=== PATIENT | female | born 1950 | race Caucasian/White ===

== ENCOUNTER → 2018-01-19 | Outpatient (CLI) | payer MEDICARE, OTHER ==
[~2018-01-19] MED LIST: ACETAMINOPHEN325 M1 PO; ARTHROTEC EC 71 EACH PO; ASPIR 8181 MG PO; CLARITIN-D 241 EACH PO; CYANOCOBAL1000 MCG/M IV; DEXILANT60 MG PO; DICLOFENAC SODI75 MG PO; EDARBI40 MG PO; JANUVIA100 MG PO; K DUR10 MEQ PO; LASIX20 MG PO; LASIX40 MG PO; LEVOTHYROXINE PO; LISINOPRIL10 MG PO; METHOCARBAMOL750 MG PO; METOPROLOL SUCC50 MG PO; METOPROLOL TART50 MG PO; MUPIROCIN22 GM TOP; NEXIUM40 MG PO; NITROFURANTOIN100 M1 PO; NORCO 10-325 T1 EACH PO; NYSTATIN100000 UNI PO; SYNTHROID125 MCG PO; VITAMIN C100 MG PO; VITAMIN D1000 UNI1 PO; Z.0.DETROL LA4 MG PO; Z.0.NEXIUM40 MG PO; [UNRECOGNIZED DRUG - OTHER] PO; [UNRECOGNIZED DRUG - OTHER] PO
== END ==
LOC: RAD 13:42
PROVIDERS: ATTEND Internal Medicine
DX: R22.41 Localized swelling, mass and lump, right lower limb (principal)
CPT/HCPCS: 93925; 93970

== ENCOUNTER → 2018-02-01 | Outpatient (CLI) | payer MEDICARE, OTHER | LOC: MAMMO 12:37 | PROVIDERS: ATTEND Internal Medicine | DX: Z12.31 Encounter for screening mammogram for malignant neoplasm of breast (principal) | CPT/HCPCS: 77067 ==

== ENCOUNTER → 2018-08-05 | Outpatient (CLI) | payer MEDICARE, OTHER ==
--- NOTE | 2018-08-05 11:25 | Diagnostic Imaging Report ---
EXAMINATION: CT scan of the chest without contrast. TECHNIQUE: Helical CT images of the chest were performed from the lung apices to the level of the adrenal glands. No intravenous contrast was administered Coronal and sagittal reformatted images were obtained. Dose modulation, iterative reconstruction, and/or weight based adjustment of the mA/kV was utilized to reduce the radiation dose to as low as reasonably achievable. COMPARISON: None. CLINICAL HISTORY:Shortness of breath, lung cancer screening DISCUSSION: ABSENCE OF INTRAVENOUS CONTRAST DECREASES SENSITIVITY FOR DETECTION OF FOCAL LESIONS AND VASCULAR PATHOLOGY. LINES/TUBES: None. LUNGS AND AIRWAYS: The lungs are clear. No pulmonary nodules, masses or consolidation. The airways are normal, without endobronchial lesions. PLEURA: No pneumothorax or pleural effusions. HEART AND MEDIASTINUM: The thyroid gland is normal. The heart and pericardium are within normal limits. LYMPH NODES: There is no mediastinal, hilar or axillary lymphadenopathy. ABDOMEN: Left renal calculi, nonobstructing. Cholecystectomy. BONES AND SOFT TISSUES: Thoracic kyphosis. Bone demineralization. Skeletal hyperostosis. IMPRESSION: No concerning nodule or mass. Signed by: Dr. Antony Clayton M.D. on 08/05/2018 11:22 AM
== END ==
LOC: CT 10:35
PROVIDERS: ATTEND Internal Medicine Critical Care Medicine
DX: Z12.2 Encounter for screening for malignant neoplasm of respiratory organs (principal)
CPT/HCPCS: 71250

== ENCOUNTER → 2018-08-09 | Outpatient (CLI) | payer MEDICARE, OTHER ==
--- NOTE | 2018-08-10 09:25 | Diagnostic Imaging Report ---
#[id number] - [id number] #UNILATERAL RIGHT DIGITAL DIAGNOSTIC MAMMOGRAM WITH CAD: 08/09/2018 Comparison is made to exams dated: 02/01/2018 mammogram, 09/14/2014 mammogram and 03/29/2013 mammogram - [facility]. Current study contains 3 films. There are scattered fibroglandular elements in the right breast. Current study was also evaluated with a Computer Aided Detection (CAD) system. There are benign calcifications and a nodule in the right breast. A marker is placed where the patient has focal pain. No significant masses, calcifications, or other findings are seen in the breast. There has been no significant interval change. IMPRESSION: BENIGN There is no mammographic evidence of malignancy. A 1 year screening mammogram is recommended. The patient will be notified by letter of the results. Paolo Brandon Jr., D.O. cw/:08/09/2018 13:35:15 Network Technical Analyst: Amelia ESPINOZA(Vee)(M), [facility] letter sent: Compared to Prior B9 Mammogram BI-RADS: 2 Benign
== END ==
LOC: MAMMO 09:58
PROVIDERS: ATTEND Internal Medicine
DX: N63.10 Unspecified lump in the right breast, unspecified quadrant (principal)

== ENCOUNTER 2018-10-01 00:48 | Emergency (ER) | payer MEDICARE, OTHER ==
[~2018-10-01] VITALS: Ht 165.1 cm; Wt 106.6 kg
--- OUTSIDE RECORDS SUMMARY | 2018-10-01 00:51 | XMS REPORT ---
Author Author [facility] Address Unknown Phone Unavailable Care Team Providers Care Flight Engineer Manager Name Role Phone JO BRAN Unavailable Unavailable OPHELIA CHA Unavailable Unavailable Problems This patient has no known problems. Allergies, Adverse Reactions, Alerts This patient has no known allergies or adverse reactions. Medications This patient has no known medications. Results Test Description Test Time Test Comments Text Results Atomic Results Result Comments MAMMOGRAPHY DIGITAL DX UNI RT 2018-08-09 11:28:00 [place] [address] Patient Name: NICOLÁS SMALLS MR #: [id number] : 1950 Age/Sex: 68/F Req #: [id number] [facility] Physician: Ordered by: JO BRAN MD Report #: [id number] Location: MAMMO Room/Bed: Procedure: [id number] MG/MAMMOGRAPHY DIGITAL DX UNI RT Exam Date: 08/09/18 Exam Time: 1033 REPORT STATUS: Signed #[id number] - [id number] #UNILATERAL RIGHT DIGITAL DIAGNOSTIC MAMMOGRAM WITH CAD: 08/09/2018 Comparison is made to exams dated: 02/01/2018 mammogram, 09/14/2014 mammogram and 03/29/2013 mammogram - [facility]. Current study contains 3 films. There are scattered fibroglandular elements in the right breast. Current study was also evaluated with a Computer Aided Detection (CAD) system. There are benign calcifications and a nodule in the right breast. A marker is placed where the patient has focal pain. No significant masses, calcifications, or other findings are seen in the breast. There has been no significant interval change. IMPRESSION: BENIGN There is no mammographic evidence of malignancy. A 1 year screening mammogram is recommended. The patient will be notified by letter of the results. Kimberlyn Brandon Jr., D.O. cw/:08/09/2018 13:35:15 School Office Assistant: Amelia ESPINOZA(Vee)([place]), [facility] letter sent: Compared to Prior B9 Mammogram BI-RADS: 2 Benign Dictated By: KIMBERLYN BRANDON DO 1335 Transcribed By: ANALISA on 08/09/18 1335 COPY TO: JO BRAN MD CT CHEST WO 2018-08-05 11:18:00 [place] [address] Patient Name: NICOLÁS SMALLS MR #: [id number] : 1950 Age/Sex: 68/F Req #: [id number] [facility] Physician: Ordered by: OPHELIA CHA MD Report #: [id number] Location: CT Room/Bed: Procedure: [id number] CT/CT CHEST WO Exam Date: 08/05/18 Exam Time: 1055 REPORT STATUS: Signed EXAMINATION: CT scan of the chest without contrast. TECHNIQUE: Helical CT images of the chest were performed from the lung apices to the level of the adrenal glands. No intravenous contrast was administered Coronal and sagittal reformatted images were obtained. Dose modulation, iterative reconstruction, and/or weight based adjustment of the mA/kV was utilized to reduce the radiation dose to as low as reasonably achievable. COMPARISON: None. CLINICAL HISTORY:Shortness of breath, lung cancer screening DISCUSSION: ABSENCE OF INTRAVENOUS CONTRAST DECREASES SENSITIVITY FOR DETECTION OF FOCAL LESIONS AND VASCULAR PATHOLOGY. LINES/TUBES: None. LUNGS AND AIRWAYS: The lungs are clear. No pulmonary nodules, masses or consolidation. The airways are normal, without endobronchial lesions. PL EURA: No pneumothorax or pleural effusions. HEART AND MEDIASTINUM: The thyroid gland is normal. The heart and pericardium are within normal limits. LYMPH NODES: There is no mediastinal, hilar or axillary lymphadenopathy. ABDOMEN: Left renal calculi, nonobstructing. Cholecystectomy. BONES AND SOFT TISSUES: Thoracic kyphosis. Bone demineralization. Skeletal hyperostosis. IMPRESSION: No concerning nodule or mass. Signed by: Dr. Rodríguez Chairez M.D. on 08/05/2018 11:22 AM Dictated By: RODRÍGUEZ CHAIREZ MD 112 Transcribed By: KENAN on 08/05/18 112 COPY TO: OPHELIA CHA MD MAMMOGRAPHY DIGITAL SCR BILAT [place] [address] Patient Name: NICOLÁS SMALLS MR #: [id number] : 1950 Age/Sex: 68/F Req #: [id number] Adm Physician: Ordered by: JO BRAN MD Report #: [id number] Location: MAMMO Room/Bed: Procedure: [id number] MG/MAMMOGRAPHY DIGITAL SCR BILAT Exam Date: 02/01/18 Exam Time: 1300 REPORT STATUS: Signed #[id number] - [id number] #BILATERAL DIGITAL SCREENING MAMMOGRAM WITH CAD: 02/01/2018 CLINICAL: Routine screening. Comparison is made to exams dated: 09/14/2014 mammogram and 03/29/2013 mammogram - [facility]. Current study contains 6 films. There are scattered fibroglandular elements in both breasts. Current study was also evaluated with a Computer Aided Detection (CAD) system. There are benign calcifications and a nodule in both breasts. No significant masses, calcifications, or other findings are seen in either breast. Densely calcified lymph nodes in the right breast are new but are noted on a chest X-ray dated 06/08/2017. There has been no significant interval change. IMPRESSION: BENIGN There is no mammographic evidence of malignancy. A 1 year screening mammogram is recommended. The patient will be notified by letter of the results. Kimberlyn Brandon Jr., D.O. cw/:02/16/2018 12:12:13 School Office Assistant: Amelia ESPINOZA(Vee)(M), [facility] letter sent: Compared to Prior B9 Mammogram BI-RADS: 2 Benign Dictated By: KIMBERLYN BRANDON DO 1212 COPY TO: JO BRAN MD
[2018-10-01 01:48] LABS: INR 0.87; PROTHROMBIN TIME 12.7 seconds (11.9-14.5)
[2018-10-01 01:49] LABS: PARTIAL THROMBOPLASTIN TIME 34.7 seconds (23.8-35.5)
[2018-10-01 01:56] LABS: BASOPHILS % 0.4 % (0.0-1.0); EOSINOPHILS % 0.3 % (0.0-6.0); HEMATOCRIT 36.8 % (34.2-44.1); HEMOGLOBIN 11.9 g/dL (12.0-16.0); LYMPHOCYTES % 9.4 % (18.0-39.1); MEAN CORPUSCULAR HEMOGLOBIN 30.5 pg (28-32); MEAN CORPUSCULAR HGB CONC 32.3 g/dL (31-35); MEAN CORPUSCULAR VOLUME 94.4 fL (81-99); MONOCYTES # (AUTO) 0.5 (0.2-0.8); MONOCYTES % 4.6 % (4.4-11.3); NEUTROPHILS # (AUTO) 8.6 (2.1-6.9); NEUTROPHILS % 84.1 % (38.7-80.0); PLATELET COUNT 331 x10e3/uL (140-360); RED CELL DISTRIBUTION WIDTH 13.2 % (11.7-14.4)
[2018-10-01 01:57] LABS: ALANINE AMINOTRANSFERASE 18 IU/L (0-55); ALBUMIN 2.9 g/dL (3.5-5.0); ALBUMIN/GLOBULIN RATIO 0.7 (0.8-2.0); ALKALINE PHOSPHATASE 103 IU/L (40-150); ANION GAP 14.9 mmol/L (8-16); BLOOD UREA NITROGEN 9 mg/dL (7-26); BUN/CREATININE RATIO 14 (6-25); CALCIUM 9.6 mg/dL (8.4-10.2); CARBON DIOXIDE 25 mmol/L (22-29); CHLORIDE 104 mmol/L (98-107); CREATINE KINASE 97 IU/L (29-168); CREATININE, SERUM 0.64 mg/dL (0.57-1.11); EST GLOMERULAR FILTRATION RATE > 60 ML/MIN (60-); GLUCOSE 170 mg/dL (74-118); POTASSIUM 3.9 mmol/L (3.5-5.1); SODIUM 140 mmol/L (136-145)
--- NOTE | 2018-10-01 02:15 | Diagnostic Imaging Report ---
EXAMINATION: CHEST 2 VIEWS INDICATION: Shortness of breath COMPARISON: Chest x-ray 06/08/2017, chest CT 08/05/2018 FINDINGS: PA and lateral views TUBES and LINES: None. LUNGS: Lungs are well inflated. Lungs are clear. There is no evidence of pneumonia or pulmonary edema. PLEURA: No pleural effusion or pneumothorax. HEART AND MEDIASTINUM: Tortuous aorta. The cardiomediastinal silhouette is otherwise unremarkable. BONES AND SOFT TISSUES: No acute osseous lesion. Thoracic kyphosis. Stable 2 cm rounded calcification projecting over the right scapula, not seen on CT 08/05/2018, possibly within the anterior soft tissues extending out of the CT and x-ray. UPPER ABDOMEN: No free air under the diaphragm. IMPRESSION: No acute thoracic abnormality. Signed by: DR. Stevie Romo MD on 10/01/2018 2:12 AM
[2018-10-01] MEDS ORDERED: ALBUTEROL/IPRATROPIUM 3 ML NEB NEB ONE (02:30)
[2018-10-01 04:00] VITALS: BP 158/78
== END 2018-10-01 04:02 | disposition home or self-care (01) ==
LOC: ER 00:48
DX: J98.01 Acute bronchospasm (principal); J00 Acute nasopharyngitis [common cold]; Z79.82 Long term (current) use of aspirin; Z88.1 Allergy status to other antibiotic agents; Z91.010 Allergy to peanuts; Z88.0 Allergy status to penicillin; Z91.013 Allergy to seafood; Z91.018 Allergy to other foods
CPT/HCPCS: 36415; 71046; 80053; 82550; 82553; 84484; 85025; 85610; 85730; 87400; 93005; 99283

== ENCOUNTER → 2019-03-23 | Outpatient (CLI) | payer MEDICARE, OTHER | LOC: RAD 10:34 | PROVIDERS: ATTEND Nurse Practitioner Acute Care | DX: L03.115 Cellulitis of right lower limb (principal) | CPT/HCPCS: 93926; 93971 ==

== ENCOUNTER 2019-05-26 12:03 | Inpatient (IN) | payer MEDICARE, OTHER ==
[~2019-05-26] VITALS: Ht 165.1 cm; Wt 106.6 kg
[2019-05-26] MEDS ORDERED: SODIUM CHLORIDE FLUSH 10 ML SYR INJ PRN (12:30)
[2019-05-26] MEDS: CLINDAMYCIN 600MG / 50ML 50 ML IV SCH ×2 (12:50→22:05)
[2019-05-26 12:58] LABS: BASOPHILS % 0.2 % (0.0-1.0); EOSINOPHILS # (AUTO) 0.1 (0.0-0.4); EOSINOPHILS % 0.7 % (0.0-6.0); HEMATOCRIT 41.7 % (34.2-44.1); HEMOGLOBIN 13.1 g/dL (12.0-16.0); LYMPHOCYTES % 14.1 % (18.0-39.1); MEAN CORPUSCULAR HEMOGLOBIN 28.4 pg (28-32); MEAN CORPUSCULAR HGB CONC 31.4 g/dL (31-35); MEAN CORPUSCULAR VOLUME 90.3 fL (81-99); MONOCYTES # (AUTO) 0.5 (0.2-0.8); MONOCYTES % 3.8 % (4.4-11.3); NEUTROPHILS # (AUTO) 11.4 (2.1-6.9); NEUTROPHILS % 80.6 % (38.7-80.0); PLATELET COUNT 335 x10e3/uL (140-360); RED BLOOD COUNT 4.62 x10e6/uL (3.6-5.1); RED CELL DISTRIBUTION WIDTH 14.6 % (11.7-14.4)
[2019-05-26 13:44] LABS: ALANINE AMINOTRANSFERASE 13 IU/L (0-55); ALBUMIN 3.2 g/dL (3.5-5.0); ALBUMIN/GLOBULIN RATIO 0.8 (0.8-2.0); ALKALINE PHOSPHATASE 122 IU/L (40-150); ANION GAP 15.4 mmol/L (8-16); BLOOD UREA NITROGEN 11 mg/dL (7-26); BUN/CREATININE RATIO 16 (6-25); CALCIUM 9.6 mg/dL (8.4-10.2); CARBON DIOXIDE 27 mmol/L (22-29); CHLORIDE 101 mmol/L (98-107); CREATININE, SERUM 0.68 mg/dL (0.57-1.11); EST GLOMERULAR FILTRATION RATE > 60 ML/MIN (60-); GLUCOSE 125 mg/dL (74-118); POTASSIUM 4.4 mmol/L (3.5-5.1); SODIUM 139 mmol/L (136-145)
[2019-05-26] MEDS ORDERED: PANTOPRAZOLE SO40 MG PO (14:03)
[2019-05-26] MEDS ORDERED: LEVOTHYROXINE100 MCG PO (14:03)
[2019-05-26] MEDS ORDERED: RANITIDINE HCL150 MG PO (14:03)
[2019-05-26] MEDS ORDERED: METOPROLOL SUCC25 MG PO (14:03)
[2019-05-26] MEDS ORDERED: PROBIOTIC & AC1 EACH PO (14:03)
[2019-05-26 14:16] VITALS: BP 134/63
[2019-05-26 14:33] VITALS: BP 134/63
[2019-05-26 16:02] VITALS: BP 153/67
[2019-05-26 16:47] VITALS: BP 153/67
[2019-05-26] MEDS: KETOROLAC TROMETHAMINE 30 MG/ML VIAL IV PRN (18:55)
--- NOTE | 2019-05-26 19:36 | NUR ---
RECEIVED PT SITTING ON THE WHEEL CHAIR DENIES PAIN RESPIRATIONS ARE EVEN AND UNLABORED . FAMILY AT THE BEDSIDE .CALL LIGHT WITH IN REACH CONTINUE TO MONITOR
[2019-05-26 20:00] VITALS: BP 107/55
[2019-05-26 20:02] VITALS: BP 153/67
[2019-05-26] MEDS ORDERED: SODIUM CHLORIDE 0.9% 250ML 250 ML ONE (22:28)
[2019-05-26] MEDS: ACETAMINOPHEN 325 MG TAB PO PRN (23:09)
[2019-05-27] VITALS (7 sets, daily range): BP systolic 151–167; BP diastolic 65–77
[2019-05-27] MEDS: KETOROLAC TROMETHAMINE 30 MG/ML VIAL IV PRN ×2 (04:24→13:17)
[2019-05-27] MEDS ORDERED: CLONIDINE HCL 0.1 MG TAB PO PRN (04:30)
[2019-05-27] MEDS ORDERED: CHOLECALCIFEROL 1,000 UNIT TAB PO SCH (05:30)
[2019-05-27 05:51] LABS: BASOPHILS % 0.3 % (0.0-1.0); EOSINOPHILS # (AUTO) 0.2 (0.0-0.4); EOSINOPHILS % 1.3 % (0.0-6.0); HEMATOCRIT 36.5 % (34.2-44.1); HEMOGLOBIN 11.4 g/dL (12.0-16.0); LYMPHOCYTES # (AUTO) 1.8 (1.0-3.2); LYMPHOCYTES % 15.3 % (18.0-39.1); MEAN CORPUSCULAR HGB CONC 31.2 g/dL (31-35); MEAN CORPUSCULAR VOLUME 89.7 fL (81-99); MONOCYTES # (AUTO) 0.5 (0.2-0.8); MONOCYTES % 4.6 % (4.4-11.3); NEUTROPHILS # (AUTO) 9.1 (2.1-6.9); PLATELET COUNT 307 x10e3/uL (140-360); RED BLOOD COUNT 4.07 x10e6/uL (3.6-5.1); RED CELL DISTRIBUTION WIDTH 14.2 % (11.7-14.4)
[2019-05-27 06:12] LABS: ALANINE AMINOTRANSFERASE 10 IU/L (0-55); ALBUMIN 2.6 g/dL (3.5-5.0); ALBUMIN/GLOBULIN RATIO 0.7 (0.8-2.0); ALKALINE PHOSPHATASE 113 IU/L (40-150); BLOOD UREA NITROGEN 19 mg/dL (7-26); BUN/CREATININE RATIO 24 (6-25); CALCIUM 9.3 mg/dL (8.4-10.2); CARBON DIOXIDE 28 mmol/L (22-29); CHLORIDE 100 mmol/L (98-107); EST GLOMERULAR FILTRATION RATE > 60 ML/MIN (60-); GLUCOSE 146 mg/dL (74-118); SODIUM 137 mmol/L (136-145)
[2019-05-27] MEDS: CLINDAMYCIN 600MG / 50ML 50 ML IV SCH ×3 (06:36→22:00)
[2019-05-27] MEDS: LEVOTHYROXINE SODIUM 100 MCG TAB PO SCH (06:36)
--- NOTE | 2019-05-27 07:00 | NUR ---
RECEIVED AM REPORT FROM RN, MORNING ROUNDS DONE. PT IS ALERT, NO S/S OF DISTRESS. CALL LIGHT WITHIN REACH. NO COMPLAINTS AT THIS TIME.
--- NOTE | 2019-05-27 07:07 | NUR ---
BEDSIDE REPORT GIVEN TO THE ONCOMING NURSE
[2019-05-27] MEDS ORDERED: LISINOPRIL 10 MG TAB PO SCH (09:00)
[2019-05-27] MEDS ORDERED: METOPROLOL SUCCINATE 25 MG TAB XL PO SCH (09:00)
[2019-05-27] MEDS: PANTOPRAZOLE SOD 40 MG TABEC PO SCH (09:08)
--- NOTE | 2019-05-27 09:55 | Diagnostic Imaging Report ---
EXAM: Soft tissue facial ULTRASOUND INDICATION: ^do ultrasound of left cheek to rule out abscess COMPARISON: None TECHNIQUE: Transverse and sagittal images were performed of the left facial/cheek area using grayscale and color Doppler. FINDINGS: At the left facial cheek, there is a 3.3 cm x 1.1 cm complex fluid collection with peripheral vascularity. IMPRESSION: 3.3 x 1.1 cm complex fluid collection at the left facial cheek, likely an abscess. Signed by: Dr. William Brown M.D. on 05/27/2019 9:52 AM
--- NOTE | 2019-05-27 10:33 | NUR ---
pt complaining that "her cheek is leaking", RN noted swelling on left cheek, redness, and when warm compress or slight pressure was applied white/yellow discharge came out of pore on lower area of cheek.
[2019-05-27] MEDS ORDERED: LIDOCAINE HCL 1% LOCAL INJ 20 ML VIAL INJ ONE (16:45)
--- NOTE | 2019-05-27 16:45 | NUR ---
Dr. Jiang is at the bedside, performed aspiration on cyst, pt tolerated well. instructed pt to apply pressure to the aspiration site for 10 min to stop bleeding, pt verbalized understanding.
--- NOTE | 2019-05-27 17:03 | NUR ---
culture from aspiration was taken to lab
--- NOTE | 2019-05-27 19:38 | NUR ---
Received change of shift report from AM nurse. Walking rounds completed.
[2019-05-27] MEDS: ACETAMINOPHEN 325 MG TAB PO PRN (19:47)
[2019-05-27] MEDS: SITAGLIPTIN 100 MG TAB PO SCH (20:40)
[2019-05-27] MEDS: LISINOPRIL 20 MG TAB PO SCH (20:40)
[2019-05-27] MEDS: METOPROLOL SUCCINATE 25 MG TAB XL PO SCH (20:41)
--- NOTE | 2019-05-27 21:01 | NUR ---
Patient AAOx3. BP 167/71 med given as ordered for BP. BS 192 no SS noted. IV to right AC 20G HL dry, intact and patient. Patient c/o pain =5 given pain meds as ordered by MD. Continue monitor. Patient left eye red and draining small amount of serosangous fluid.
--- NOTE | 2019-05-27 23:44 | Consultation ---
DATE OF CONSULTATION: 05/27/2019 HISTORY OF PRESENT ILLNESS: I was kindly asked to see this pleasant 69-year-old woman for evaluation of facial abscess. The patient reports a cyst in the region of her left nasolabial fold, which has been approximately the size of a pea and been present for 2-3 years. She reports she developed a scab over the lesion and was scratching the scab and it suddenly became much worse with pain and swelling over the left cheek area. This then progressed to include the upper and lower eyelid and extended down to the level of the jaw. Since admission, she has been placed on IV antibiotics and was using warm compresses. She had spontaneous drainage of the abscess and has noted marked improvement in the pain, swelling and overlying erythema. On admission, ultrasound showed a 3.3 x 1.1 cm complex fluid collection of the left cheek region. REVIEW OF SYSTEMS: Her otolaryngology review of systems is pertinent for intermittent epistaxis and chronic allergic sinusitis. She also has excess cerumen which requires intermittent cleaning. PAST MEDICAL HISTORY: Reviewed in detail in the chart. PAST SURGICAL HISTORY: Reviewed in detail in the chart. PHYSICAL EXAMINATION: The right pinna was normal. The right external auditory canal was approximately 75% occluded with cerumen. The visualized portion of the tympanic membrane was normal. The left tympanic membrane was normal. Left external auditory canal had approximately 25% occlusion with cerumen. The visualized portion of the tympanic membrane was unremarkable. Intranasal examination showed an S shaped nasal septal deviation. There was dilation of the blood vessels bilaterally. She had edema of the nasal mucosa and minimal thick mucus was noted. Intraoral examination showed no clinically significant abnormalities. She had a minimal postnasal drainage. There was no palpable cervical adenopathy. The left nasolabial fold region had a 4 cm x 3 cm area of erythema and firmness. On bimanual palpation, there was no fluctuance noted. She had minimal edema of the left lower eyelid. After injection with 1% lidocaine, the lesion was aspirated with an 18-gauge needle, approximately 1.5 mL of pus was obtained. This was sent for culture. ASSESSMENT: Possible left facial epidermal inclusion cyst which has become infected, although a large abscess was identified on ultrasound. There was spontaneous drainage of the abscess and marked clinical improvement after initiation of IV antibiotic therapy. Therefore, it was elected to perform 18-gauge needle aspiration for therapeutic drainage as well as culture and sensitivity. PLAN: 1. Continuation of current IV antibiotics with continuation of warm compresses. 2. We will continue to observe for possible reaccumulation of abscess and possible incision and drainage. Thank you very much. MD ADRIANA Hadley/NATHALIA /[id number]
[2019-05-28] VITALS (7 sets, daily range): BP systolic 149–161; BP diastolic 67–81
[2019-05-28] MEDS: KETOROLAC TROMETHAMINE 30 MG/ML VIAL IV PRN (03:27)
--- NOTE | 2019-05-28 04:00 | NUR ---
Patient up to bathroom several times. Stand by asst. Hot and cold compress applied to left side of face. Redness and swelling continue.
[2019-05-28] MEDS: CLINDAMYCIN 600MG / 50ML 50 ML IV SCH ×3 (05:30→22:00)
[2019-05-28] MEDS: LEVOTHYROXINE SODIUM 100 MCG TAB PO SCH (05:31)
--- NOTE | 2019-05-28 07:00 | NUR ---
received am report from nurse, morning rounds done. pt is alert resting in bed. pt's left periorbital and cheek area are inflamed and red. pt plans on keeping warm compress on left side of face to help with selling. no complaints of pain at this time. call light within reach
[2019-05-28] MEDS: LISINOPRIL 20 MG TAB PO SCH ×2 (08:53→20:31)
[2019-05-28] MEDS: PANTOPRAZOLE SOD 40 MG TABEC PO SCH (08:53)
[2019-05-28] MEDS: METOPROLOL SUCCINATE 25 MG TAB XL PO SCH ×2 (08:54→20:31)
[2019-05-28] MEDS: AZTREONAM (AZACTAM) 1 GM in SODIUM CHLORIDE 0.9% 50ML 50 ML IV SCH ×2 (14:15→21:06)
--- NOTE | 2019-05-28 15:58 | NUR ---
pt complaining that she has not had a BM since wednesday. got new order from Dr. Reed for stool softener.
[2019-05-28] MEDS: DOCUSATE SODIUM 100 MG CAP PO SCH (16:10)
--- NOTE | 2019-05-28 17:32 | Consultation ---
DATE OF CONSULTATION: REASON FOR CONSULTATION: Face abscess. HISTORY OF PRESENT ILLNESS: Thank you so much to see this patient, who is a very pleasant 69-year-old female. The patient has been having swelling in her right side of her face for a week. 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 She had it on and off for a while. She thought it was just a small cyst, but over the last 3 days, it was getting progressively worse with fever and chills and redness and swelling of the face, so she came here. The patient, who has history of obesity, but she does have a lot of allergies. She is allergic to cephalosporin, penicillin, and sulfa. The patient was admitted. She has been seen by ENT, started on IV antibiotic. She is feeling better. PAST MEDICAL HISTORY: Obesity, hypertension, and hypothyroidism. PAST SURGICAL HISTORY: Denies. ALLERGIES: NKA. SOCIAL HISTORY: There is no smoking, drug abuse, or alcohol abuse. FAMILY HISTORY: Noncontributory. REVIEW OF SYSTEMS: HEENT: Negative. PULMONARY: Negative. CARDIAC: Negative. : Negative. Besides redness and swelling on her face, she denies any. PHYSICAL EXAMINATION: GENERAL: She is currently alert and oriented, does not seem to be in acute distress. VITAL SIGNS: Stable. Currently afebrile. HEENT: She is not icteric. NECK: Supple. No JVD. No lymphadenopathy. No thyromegaly. CHEST: Clear bilateral. HEART: S1 and S2. No S3, S4, or murmur. ABDOMEN: Soft. Bowel sounds present. No tenderness. EXTREMITIES: No edema. She did have redness and swelling on her left side of her face. The patient apparently underwent drainage just today and about 2 mL of pus. The culture showing gram-negative bacilli. MEDICATION LIST: She is currently on Synthroid and clindamycin. IMPRESSION: 1. Abscess on the face, gram-negative. The patient is allergic to penicillin. We will try Azactam. Await culture and sensitivity, local heat. The patient will be seen by ENT. Apparently, she is getting better so far, so we will continue the same. 2. Hypertension, hypothyroidism. Continue as ordered. 3. Obesity. 4. We will follow. MD LIZZY Love/NATHALIA /[id number]
--- NOTE | 2019-05-28 19:28 | NUR ---
Received change of shift report from AM nurse. Walking rounds completed. Patient in bed rsting quitly at this time. No noted distress or discomfort.
[2019-05-28] MEDS: SITAGLIPTIN 100 MG TAB PO SCH (20:31)
--- NOTE | 2019-05-28 21:30 | NUR ---
new iv #20 gauge placed to right hand x 1 stick. previous iv to right forearm d/c'd and clean dressing applied to site.
[2019-05-29] VITALS (7 sets, daily range): BP systolic 150–184; BP diastolic 72–99
[2019-05-29] MEDS: AZTREONAM (AZACTAM) 1 GM in SODIUM CHLORIDE 0.9% 50ML 50 ML IV SCH (05:30)
[2019-05-29] MEDS: LEVOTHYROXINE SODIUM 100 MCG TAB PO SCH (05:31)
[2019-05-29] MEDS: CLINDAMYCIN 600MG / 50ML 50 ML IV SCH (06:00)
--- NOTE | 2019-05-29 07:00 | NUR ---
RECEIVED PATIENT RESTING IN BED. NO ACUTE DISTRESS NOTED. DENIES PAIN OR DISCOMFORT AT THIS TIME. CALL LIGHT WITHIN REACH. BED IN THE LOWEST POSITION.
[2019-05-29] MEDS: DOCUSATE SODIUM 100 MG CAP PO SCH ×2 (09:00→16:03)
[2019-05-29] MEDS: LISINOPRIL 20 MG TAB PO SCH ×2 (09:23→22:10)
[2019-05-29] MEDS: PANTOPRAZOLE SOD 40 MG TABEC PO SCH (09:23)
[2019-05-29] MEDS: METOPROLOL SUCCINATE 25 MG TAB XL PO SCH ×2 (09:23→22:11)
[2019-05-29] MEDS: AZTREONAM 1 GM/NS 50 ML 50 ML IV SCH ×2 (13:40→22:53)
--- NOTE | 2019-05-29 17:58 | NUR ---
Nutrition Screen Note RD Recommendation for Physician: -Continue cardiac diet as ordered Plan of Care: RD following, monitoring for tolerance and adequacy Nutrition reason for involvement: Multiple food allergies Primary Diagnose(s): cellulitis and abscess of face PMH: Obesity, hypertension, and hypothyroidism Ht: 65in Wt: 235.25lb BMI: 39.1kg/m2 IBW: 125lb +/- 10% RD Assessment: (05/29) Chart reviewed. Labs and meds reviewed. 69yo F, who was admitted for cellulitis and abscess of L sided face. Visited pt in the room. Pt reported good appetite without any GI complains. Pt denied any chewing or swallowing difficulty. Weight has been stable. Reviewed food allergies with pt - confirmed allergies with peanut, garlic, onion and some fishes. Pt is not allergic to corn. Communicated food allergies with kitchen. Will continue to monitor and follow. Current Diet: cardiac diet Malnutrition Evaluation (05/29/2019) The patient does not meet criteria for a specified degree of malnutrition at this time. Will re-evaluate at follow-up as appropriate. Diet Education Needs Assessment: Diet education not indicated. Nutrition Care Level: low Signed: Sis Peterson, MS, RD, LD
--- NOTE | 2019-05-29 20:04 | NUR ---
REPORT GIVEN TO ONCOMING NURSE, WALKING ROUNDS DONE. PATIENT IS RESTING IN BED. CALL LIGHT WITHIN REACH. BED IN THE LOWEST POSITION.
--- NOTE | 2019-05-29 20:25 | NUR ---
PT IS RESTING IN BED. RESPIRATION IS EVEN AND UNLABORED, NO DISTRESS NOTED. BED IN THE LOWEST POSITION, LOCKED, AND CALL LIGHT WITHIN REACH. WILL CONTINUE TO MONITOR.
[2019-05-29] MEDS: SITAGLIPTIN 100 MG TAB PO SCH (22:10)
[2019-05-30] VITALS (10 sets, daily range): BP systolic 139–198; BP diastolic 72–97
[2019-05-30] MEDS: KETOROLAC TROMETHAMINE 30 MG/ML VIAL IV PRN (00:10)
[2019-05-30] MEDS: AZTREONAM 1 GM/NS 50 ML 50 ML IV SCH ×3 (05:49→22:35)
[2019-05-30] MEDS: LEVOTHYROXINE SODIUM 100 MCG TAB PO SCH (05:49)
--- NOTE | 2019-05-30 06:50 | NUR ---
RECEIVED PATIENT RESTING IN BED. NO ACUTE DISTRESS NOTED. NO S/S OF PAIN OR DISCOMFORT NOTED AT THIS TIME. CALL LIGHT WITHIN REACH. BED IN THE LOWEST POSITION.
[2019-05-30] MEDS: DOCUSATE SODIUM 100 MG CAP PO SCH ×2 (08:48→16:19)
[2019-05-30] MEDS: METOPROLOL SUCCINATE 25 MG TAB XL PO SCH ×2 (08:51→22:35)
[2019-05-30] MEDS: LISINOPRIL 20 MG TAB PO SCH ×2 (08:51→22:35)
[2019-05-30] MEDS: PANTOPRAZOLE SOD 40 MG TABEC PO SCH (08:51)
[2019-05-30] MEDS ORDERED: ERGOCALCIFEROL 50,000 UNIT CAP PO SCH (09:00)
[2019-05-30 12:19] LABS: ANION GAP 13.6 mmol/L (8-16); BLOOD UREA NITROGEN 20 mg/dL (7-26); BUN/CREATININE RATIO 29 (6-25); CALCIUM 9.5 mg/dL (8.4-10.2); CARBON DIOXIDE 28 mmol/L (22-29); CHLORIDE 100 mmol/L (98-107); CREATININE, SERUM 0.68 mg/dL (0.57-1.11); EST GLOMERULAR FILTRATION RATE > 60 ML/MIN (60-); GLUCOSE 136 mg/dL (74-118); POTASSIUM 4.6 mmol/L (3.5-5.1); SODIUM 137 mmol/L (136-145)
[2019-05-30] MEDS: TRIAMCINOLONE 0.1% DENTAL PASTE 0.18 OZ TUBE DT SCH ×2 (12:28→17:06)
[2019-05-30] MEDS: ACETAMINOPHEN 325 MG TAB PO PRN (15:32)
--- NOTE | 2019-05-30 15:41 | NUR ---
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
[2019-05-30] MEDS: LORATADINE 10 MG TAB PO SCH (16:23)
--- NOTE | 2019-05-30 19:17 | NUR ---
REPORT GIVEN TO ONCOMING NURSE, WALKING ROUNDS DONE. PATIENT IS RESTING IN BED. NO ACUTE DISTRESS NOTED. FAMILY MEMBERS AT BEDSIDE. CALL LIGHT WITHIN REACH. BED IN THE LOWEST POSITION.
--- NOTE | 2019-05-30 19:41 | NUR ---
PT IS RESTING IN BED WITH FAMILY AT BEDSIDE. RESPIRATION IS EVEN AND UNLABORED, NO DISTRESS NOTED. BED IN THE LOWEST POSITION, LOCKED, AND CALL LIGHT WITHIN REACH. WILL CONTINUE TO MONITOR.
[2019-05-30] MEDS: SITAGLIPTIN 100 MG TAB PO SCH (22:34)
[2019-05-31] VITALS (7 sets, daily range): BP systolic 146–178; BP diastolic 67–81
[2019-05-31] MEDS: ACETAMINOPHEN 325 MG TAB PO PRN ×2 (00:11→21:34)
[2019-05-31] MEDS: TRIAMCINOLONE 0.1% DENTAL PASTE 0.18 OZ TUBE DT SCH ×3 (05:40→19:08)
[2019-05-31] MEDS: AZTREONAM 1 GM/NS 50 ML 50 ML IV SCH ×3 (05:42→21:11)
[2019-05-31] MEDS: LEVOTHYROXINE SODIUM 100 MCG TAB PO SCH (05:42)
--- NOTE | 2019-05-31 07:30 | NUR ---
PT IN BED SLEEPING NO DISTRESS NOTED .NO S/S DISCOMFORT
[2019-05-31] MEDS: DOCUSATE SODIUM 100 MG CAP PO SCH ×3 (08:43→17:00)
[2019-05-31] MEDS: LORATADINE 10 MG TAB PO SCH (08:43)
[2019-05-31] MEDS: METOPROLOL SUCCINATE 25 MG TAB XL PO SCH ×2 (08:44→20:41)
[2019-05-31] MEDS: PANTOPRAZOLE SOD 40 MG TABEC PO SCH (08:44)
[2019-05-31] MEDS: LISINOPRIL 20 MG TAB PO SCH ×2 (08:44→20:41)
--- NOTE | 2019-05-31 13:53 | NUR ---
PICCLINE INSERTED TP LT UA ORDERED
--- NOTE | 2019-05-31 14:16 | NUR ---
CM MET WITH PT ARRANGEMENTS FOR PICC LINE TODAY PT HAS APPOINTMENT AT DR LAWSON'S OFFICE IN AM AT 10 TO START IV ABX PT GIVEN MAP, ADDRESS AND PHONE NUMBER FOR DR LAWSON'S OFFICE DR BRAN NOTIFIED THAT PT HAS APPT WITH DR LAWSON IN HIS OFFICE TOMORROW AT 10 AM PLAN DC HOME IN AM PT REFUSING HOME HEALTH; STATES SHE DOESN'T NEED IT
--- NOTE | 2019-05-31 14:38 | Diagnostic Imaging Report ---
EXAMINATION: CHEST XRAY LINE PLACEMENT INDICATION: PICC placement COMPARISON: Chest radiograph of 10/01/2018 FINDINGS: TUBES and LINES: Interval left PICC placement terminating in the left innominate vein. LUNGS: The lungs are moderately inflated. Mild biapical pleural parenchymal thickening/scarring. No focal pneumonia or edema. PLEURA: No pleural effusion or pneumothorax. HEART AND MEDIASTINUM: The cardiomediastinal silhouette is normal in size and contour. BONES AND SOFT TISSUES: No acute fracture or dislocation. UPPER ABDOMEN: Unchanged 2 cm rounded calcification ejecting over the right scapula. IMPRESSION: Interval placement of left PICC line terminating in the left innominate vein. Advancement of PICC line is recommended by approximately 5 to 6 cm. Signed by: Lotus Young MD on 05/31/2019 2:35 PM
--- NOTE | 2019-05-31 16:16 | Diagnostic Imaging Report ---
EXAMINATION: CHEST XRAY LINE PLACEMENT INDICATION: ^PICC LINE PLACE ^Y COMPARISON: Chest radiograph 05/31/2019 1419 p.m. FINDINGS: AP view TUBES and LINES: The left PICC has been slightly advanced with tip now overlying the thoracic spine, likely at the level of the mid brachiocephalic vein. Recommend additional advancement of at least 3 cm and repeat MR penetrated chest x-ray. LUNGS: Lungs are well inflated. Stable multifocal areas of reticular scarring. This is worse in the right lower lobe. There is no evidence of pneumonia or pulmonary edema. PLEURA: No pleural effusion or pneumothorax. HEART AND MEDIASTINUM: The cardiomediastinal silhouette is unremarkable. BONES AND SOFT TISSUES: No acute osseous lesion. Indeterminate round calcification overlying the right scapula. UPPER ABDOMEN: No free air under the diaphragm. IMPRESSION: The left PICC has been slightly advanced with tip now overlying the thoracic spine, likely at the level of the mid brachiocephalic vein. Recommend additional advancement of at least 3 cm and repeat MR penetrated chest x-ray. Signed by: Dr. Anh Leroy M.D. on 05/31/2019 4:12 PM
--- NOTE | 2019-05-31 17:28 | Diagnostic Imaging Report ---
EXAMINATION: CHEST XRAY LINE PLACEMENT INDICATION: PICC line placement COMPARISON: Chest radiograph of earlier the same day FINDINGS: TUBES and LINES: Left PICC line has been readjusted and advanced and now terminates in the superior vena cava. LUNGS: The lungs are well-inflated. No focal consolidation or pulmonary edema. PLEURA: No pleural effusion or pneumothorax. HEART AND MEDIASTINUM: The cardiomediastinal silhouette is unchanged in size and contour. BONES AND SOFT TISSUES: No acute fracture or dislocation. Unchanged rounded calcified lesion overlying the right scapula. UPPER ABDOMEN: No free air under the diaphragm. IMPRESSION: Left PICC line now terminates in the superior vena cava. Otherwise, no significant change. Signed by: Lotus Young MD on 05/31/2019 5:24 PM
--- NOTE | 2019-05-31 17:40 | NUR ---
PT IN BED DENIES PAIN .LT SIDE FACE SLIGHT REDNESS NOTED NO DRAINAGE.AWAITING XRAY RESULTS FOR PICC
--- NOTE | 2019-05-31 17:42 | NUR ---
OK TO USE PICC LINE
--- NOTE | 2019-05-31 19:26 | NUR ---
Received change of shift report from AM nurse. Walking rounds completed.
[2019-05-31] MEDS: SITAGLIPTIN 100 MG TAB PO SCH (20:41)
[2019-06-01] VITALS: BP 119/64
--- NOTE | 2019-06-01 | NUR ---
Patient up ambulating in zayas with walker. C/o SALAS tylenol given.
[2019-06-01 04:00] VITALS: BP 141/62
[2019-06-01] MEDS: AZTREONAM 1 GM/NS 50 ML 50 ML IV SCH (05:23)
[2019-06-01] MEDS: LEVOTHYROXINE SODIUM 100 MCG TAB PO SCH (05:23)
[2019-06-01] MEDS: TRIAMCINOLONE 0.1% DENTAL PASTE 0.18 OZ TUBE DT SCH (05:33)
--- NOTE | 2019-06-01 06:00 | NUR ---
Patient resting quitly at this time. Continue monitor.
--- NOTE | 2019-06-01 06:27 | Discharge Summary ---
DISCHARGE DIAGNOSES: 1. Left cheek abscess with Escherichia coli. 2. Sepsis. 3. Hypertension. 4. Diabetes. HISTORY OF PRESENT ILLNESS AND HOSPITAL COURSE: See hospital chart for full details. The patient presented with an abscess about 3 cm to the left cheek after she was trying to squeeze a sebaceous cyst, who unfortunately had a secondary infection, so she was brought into the hospital, placed on IV antibiotics, seen by [facility], and they performed an aspirate of about 3 mL of pus, which cultures grew out E coli. Once we do the sensitivities, her antibiotics were changed to the appropriate antibiotic, but due to multiple allergies, the only way we can treat this abscess is that she would need IV antibiotics, so she had a PICC line placed. Once the antibiotics were arranged through Dr. Madden's office, the patient was then discharged home in good condition. Please see the hospital chart for full details. MD ANDREW Bell/NATHALIA /[id number]
[2019-06-01 08:35] VITALS: BP 164/69
[2019-06-01 08:39] VITALS: BP 164/69
--- NOTE | 2019-06-01 09:15 | NUR ---
pt dischaged pt home,picc line flushed,instructed given copy on chart
== END 2019-06-01 09:15 | disposition home or self-care (01) | DRG 854 ==
LOC: ER 12:03 → ERHOLD 12:29 → MED/SURG3 13:53
PROVIDERS: ADMIT Internal Medicine; ATTEND Internal Medicine
PROC: 0J910ZZ Drainage of Face Subcutaneous Tissue and Fascia, Open Approach (ICD-10-PCS; principal; 2019-05-31)
PROC: 02HV33Z Insertion of Infusion Device into Superior Vena Cava, Percutaneous Approach (ICD-10-PCS; 2019-05-31)
DX: A41.51 Sepsis due to Escherichia coli [E. coli] (principal); L02.01 Cutaneous abscess of face; B96.20 Unspecified Escherichia coli [E. coli] as the cause of diseases classified elsewhere; I10 Essential (primary) hypertension; E11.9 Type 2 diabetes mellitus without complications; E66.9 Obesity, unspecified; Z68.39 Body mass index [BMI] 39.0-39.9, adult; Z86.12 Personal history of poliomyelitis; E03.9 Hypothyroidism, unspecified
CPT/HCPCS: 36415; 36569; 71045; 76999; 80048; 80053; 82948; 83605; 85025; 87071; 87186; 87205; 99284; J1885; J7050

== ENCOUNTER → 2022-06-04 | Outpatient (CLI) | payer MEDICARE, OTHER ==
[~2022-06-04] MED LIST changes: +LEVOTHYROXINE100 MCG PO; +METOPROLOL SUCC25 MG PO; +PANTOPRAZOLE SO40 MG PO; +PROBIOTIC & AC1 EACH PO; +RANITIDINE HCL150 MG PO
== END ==
LOC: MAMMO 13:38
PROVIDERS: ATTEND Internal Medicine
DX: R92.8 Other abnormal and inconclusive findings on diagnostic imaging of breast (principal)
CPT/HCPCS: 77066

== ENCOUNTER 2025-06-23 20:14 | Inpatient (IN) | payer MEDICARE, OTHER ==
[~2025-06-23] VITALS: Ht 165.1 cm; Wt 106.6 kg
[~2025-06-23 20:14] MED LIST changes: +AMITRIPTYLINE H25 MG PO; +ETOMIDATE 2 MG/ML 10 ML INJ IV ONE; +MIDAZOLAM HCL 2 MG/2 ML VIAL ONE; +SUCCINYLCHOLINE CHLORIDE 20 MG/ML 10ML VIAL ONE; +VECURONIUM BROMIDE FOR INJ 20 MG VIAL ONE; +WATER STERILE 10 ML VIAL ONE
[2025-06-23 21:04] LABS: BASOPHILS % 0.1 % (0.0-1.0); EOSINOPHILS % 0.1 % (0.0-6.0); LYMPHOCYTES % 8.6 % (18.0-39.1); MONOCYTES % 5.5 % (4.4-11.3); NEUTROPHILS % 84.7 % (38.7-80.0); RED CELL DISTRIBUTION WIDTH 14.7 % (11.7-14.4)
[2025-06-23 21:07] VITALS: TEMP 98.7
[2025-06-23 21:17] LABS: EST GLOMERULAR FILTRATION RATE 18.0 ML/MIN (>=60)
[2025-06-23 21:56] LABS: INR 1.5
[2025-06-23] MEDS: LACTATED RINGER'S 1,000 ML INJ ONE (22:09)
[2025-06-23] MEDS: SODIUM BICARBONATE 8.4% INJ 50 ML SYR IV STA (22:10)
[2025-06-23] MEDS: MEROPENEM 1 GM in SODIUM CHLORIDE 0.9% 100 ML IV ONE (22:11)
[2025-06-23] MEDS: SODIUM CHLORIDE 0.9% 1000ML 1,710 ML IV ONE (22:13)
[2025-06-23 22:39] LABS: LEUKOCYTE ESTERASE ,URINE TRACE (NEGATIVE); PROTEIN,URINE DIPSTICK >=300 (NEGATIVE)
[2025-06-23 22:40] LABS: URINE UROBILINOGEN 0.2 mg/dL (0.2 - 1)
[2025-06-23] MEDS: CALCIUM GLUCONATE 10% INJ 13.95 MEQ in SODIUM CHLORIDE 0.9% 100 ML IV ONE (22:41)
[2025-06-23] MEDS: CALCIUM GLUC 1 G/50 ML NACL 150 ML IV ONE (22:41)
[2025-06-23 22:51] LABS: EPITHELIAL CELLS,URINE FEW /LPF
[2025-06-23 22:52] LABS: YEAST,URINE MANY
[2025-06-23] MEDS: INSULIN REGULAR, HUMAN 100 UNIT/1 ML IV ONE (22:59)
[2025-06-23 23:14] VITALS: PULSE 89; RESP 19
[2025-06-23 23:59] VITALS: BP 140/72; PULSE 100; RESP 20; TEMP 98.6; O2SAT 98
[2025-06-24] VITALS (48 sets, daily range): BP systolic 54–135; BP diastolic 24–117; PULSE 39–144; RESP 15–34; TEMP 97.8–98.2; O2SAT 87–99
[2025-06-24] MEDS ORDERED: ELIQUIS5 MG PO (00:26)
[2025-06-24] MEDS ORDERED: DEXTROSE 50% SYRINGE 50 ML IV PRN (00:30)
[2025-06-24] MEDS ORDERED: PRILOSEC10 M1 PO (00:33)
[2025-06-24] MEDS: SODIUM CHLORIDE 0.9% 1000ML 1,000 ML IV SCH (01:17)
[2025-06-24] MEDS: INSULIN REGULAR, HUMAN 100 UNIT/1 ML SQ SCH (07:30)
[2025-06-24 08:38] LABS: BASOPHILS % 0.1 % (0.0-1.0); EOSINOPHILS % 0.1 % (0.0-6.0); LYMPHOCYTES % 7.8 % (18.0-39.1); MONOCYTES % 6.4 % (4.4-11.3); NEUTROPHILS % 84.8 % (38.7-80.0); RED CELL DISTRIBUTION WIDTH 14.9 % (11.7-14.4)
[2025-06-24 08:57] LABS: EST GLOMERULAR FILTRATION RATE 18.0 ML/MIN (>=60)
[2025-06-24] MEDS: ATROPINE SULFATE 1 MG/ML VIAL IV ONE (12:38)
[2025-06-24 13:05] LABS: T3 UPTAKE 29.75 % (22.5-37.0)
[2025-06-24] MEDS: ATROPINE SULFATE 0.1 MG/ML 10ML SYR ONE (14:41)
[2025-06-25] VITALS (27 sets, daily range): BP systolic 81–175; BP diastolic 51–150; PULSE 61–169; RESP 16–27; TEMP 96.9–98.6; O2SAT 90–100
[2025-06-25] MEDS: LEVOTHYROXINE SODIUM 100 MCG TAB PO SCH (05:44)
[2025-06-25 06:51] LABS: BASOPHILS % 0.1 % (0.0-1.0); EOSINOPHILS % 0.1 % (0.0-6.0); LYMPHOCYTES % 8.0 % (18.0-39.1); MONOCYTES % 7.4 % (4.4-11.3); NEUTROPHILS % 83.4 % (38.7-80.0); RED CELL DISTRIBUTION WIDTH 14.9 % (11.7-14.4)
[2025-06-25 07:24] LABS: EST GLOMERULAR FILTRATION RATE 20.0 ML/MIN (>=60)
[2025-06-25] MEDS: AMIODARONE HCL 150 MG/100 ML BAG IV ONE (07:43)
[2025-06-25] MEDS: METOPROLOL SUCCINATE 25 MG TAB XL PO SCH (08:08)
[2025-06-25 09:17] LABS: ABG BASE EXCESS -4.0 mmol/L (-2 - 3); ABG HCO3 24 mmol/L (22-26); ABG OXYGEN SATURATION 92.0 % (95-98); ABG PCO2 61 mmHg (35-45); ABG PH 7.20 (7.35-7.45); ABG PO2 79 mmHg (80-105); ABG TCO2 26
[2025-06-25 10:11] LABS: PHOSPHORUS 6.9 MG/DL (2.3-4.7)
[2025-06-25] MEDS: DEXTROSE 5%/0.45% SOD CHL 1,000 ML IV SCH (10:32)
[2025-06-25] MEDS: AMIODARONE 900MG 500 ML IV SCH (10:33)
[2025-06-25 12:37] LABS: LYMPHOCYTES,BODY FLUID 64 %; MONO/MACROPHG,BODY FLUID 22 %; NEUTROPHILS,BODY FLUID 14 %; TOTAL CELLS COUNTED (DIFF) 100
[2025-06-25 12:38] LABS: BODY FLUID APPEARANCE CLEAR; BODY FLUID COLOR YELLOW; BODY FLUID TYPE PLEURAL; WBC,BODY FLUID 493 cells/uL
[2025-06-25] MEDS: REMDESIVIR 200MG 200 MG in SODIUM CHLORIDE 0.9% 100 ML IV ONE (12:56)
[2025-06-26] VITALS (34 sets, daily range): BP systolic 70–125; BP diastolic 46–105; PULSE 44–152; RESP 14–31; TEMP 98–98.6; O2SAT 98–100
[2025-06-26 06:32] LABS: BASOPHILS % 0.2 % (0.0-1.0); EOSINOPHILS % 0.3 % (0.0-6.0); LYMPHOCYTES % 9.2 % (18.0-39.1); MONOCYTES % 7.1 % (4.4-11.3); NEUTROPHILS % 82.5 % (38.7-80.0); RED CELL DISTRIBUTION WIDTH 15.5 % (11.7-14.4)
[2025-06-26 07:10] LABS: EST GLOMERULAR FILTRATION RATE 34.0 ML/MIN (>=60)
[2025-06-26 09:24] LABS: ABG BASE EXCESS -2.0 mmol/L (-2 - 3); ABG HCO3 24 mmol/L (22-26); ABG OXYGEN SATURATION 99.0 % (95-98); ABG PCO2 47 mmHg (35-45); ABG PH 7.31 (7.35-7.45); ABG PO2 167 mmHg (80-105); ABG TCO2 26
[2025-06-26] MEDS: KETOROLAC TROMETHAMINE 30 MG/ML VIAL IV ONE (10:07)
[2025-06-26] MEDS: REMDESIVIR 100MG 100 MG in SODIUM CHLORIDE 0.9% 100 ML IV SCH (11:44)
[2025-06-26] MEDS: ALBUMIN 5% 0.05 GM/ML BTL IV ONE (14:30)
[2025-06-26] MEDS: AMIODARONE 900MG 500 ML IV SCH (16:07)
[2025-06-26 17:52] LABS: TOTAL PROTEIN,BODY FLUID 1.6 g/dL
[2025-06-27] VITALS (63 sets, daily range): BP systolic 66–157; BP diastolic 43–117; PULSE 41–133; RESP 11–26; TEMP 97.8–99; O2SAT 96–100
[2025-06-27 06:14] LABS: BASOPHILS % 0.2 % (0.0-1.0); EOSINOPHILS % 0.6 % (0.0-6.0); LYMPHOCYTES % 12.9 % (18.0-39.1); MONOCYTES % 7.5 % (4.4-11.3); NEUTROPHILS % 78.1 % (38.7-80.0); RED CELL DISTRIBUTION WIDTH 15.2 % (11.7-14.4)
[2025-06-27 06:48] LABS: EST GLOMERULAR FILTRATION RATE 63.0 ML/MIN (>=60)
[2025-06-27] MEDS: ENOXAPARIN SODIUM INJ 100 MG/ML SYR SC SCH (09:30)
[2025-06-27] MEDS: PROPOFOL IV EMULSION 10MG/ML 100 ML IV PRN (09:45)
[2025-06-27] MEDS: FENTANYL 2000MCG/NS 250 250 ML IV PRN (09:45)
[2025-06-27] MEDS: FENTANYL 2000MCG/NS 250 250 ML ONE (09:46)
[2025-06-27] MEDS: PROPOFOL IV EMULSION 10MG/ML 100 ML ONE (09:47)
[2025-06-27] MEDS ORDERED: MIDAZOLAM HCL 2 MG/2 ML VIAL ONE (10:20)
[2025-06-27] MEDS: MIDAZOLAM HCL 2 MG/2 ML VIAL IV STA (10:57)
[2025-06-27] MEDS: SODIUM CHLORIDE 0.9% 500ML 500 ML IV ONE (11:26)
[2025-06-27] MEDS: METOPROLOL TARTRATE 25 MG TAB PO SCH (14:00)
[2025-06-27] MEDS: NOREPINEPHRINE 8 MG/D5W 250 ML 250 ML IV SCH (14:02)
[2025-06-27] MEDS: SODIUM CHLORIDE 0.9% 1000ML 1,000 ML ONE (15:30)
[2025-06-27] MEDS: AMIODARONE 900MG 500 ML IV ONE (20:26)
[2025-06-27] MEDS: AMIODARONE 900MG 500 ML IV SCH (20:29)
[2025-06-28] VITALS (61 sets, daily range): BP systolic 66–155; BP diastolic 48–89; PULSE 29–108; RESP 13–25; TEMP 98.8–99.1; O2SAT 94–100
[2025-06-28 06:50] LABS: EST GLOMERULAR FILTRATION RATE 55.0 ML/MIN (>=60)
[2025-06-28 06:58] LABS: BASOPHILS % 0.5 % (0.0-1.0); EOSINOPHILS % 0.8 % (0.0-6.0); LYMPHOCYTES % 13.6 % (18.0-39.1); MONOCYTES % 7.1 % (4.4-11.3); NEUTROPHILS % 77.4 % (38.7-80.0); RED CELL DISTRIBUTION WIDTH 15.2 % (11.7-14.4)
[2025-06-28 07:50] LABS: EST GLOMERULAR FILTRATION RATE 57.0 ML/MIN (>=60)
[2025-06-28] MEDS ORDERED: MIDAZOLAM HCL 2 MG/2 ML VIAL ONE (07:54)
[2025-06-28] MEDS: DEXMEDETOMIDINE 400MCG/NS100ML 100 ML IV PRN (08:02)
[2025-06-28] MEDS: MIDAZOLAM HCL 2 MG/2 ML VIAL IV STA (08:21)
[2025-06-28] MEDS ORDERED: FUROSEMIDE INJ 10 MG/ML 4 ML VIAL ONE (09:00)
[2025-06-28] MEDS: FUROSEMIDE INJ 10 MG/ML 2 ML VIAL IV ONE (13:34)
[2025-06-28] MEDS: MAGNESIUM SULFATE 2GM/50ML 50 ML IV ONE (13:34)
[2025-06-28] MEDS: SODIUM CHLORIDE 0.9% 1000ML 1,000 ML IV SCH (13:34)
[2025-06-29] VITALS (42 sets, daily range): BP systolic 79–126; BP diastolic 56–105; PULSE 37–114; RESP 14–34; TEMP 99–99.8; O2SAT 93–100
[2025-06-29 05:59] LABS: BASOPHILS % 0.3 % (0.0-1.0); EOSINOPHILS % 1.1 % (0.0-6.0); LYMPHOCYTES % 11.6 % (18.0-39.1); MONOCYTES % 7.4 % (4.4-11.3); NEUTROPHILS % 79.1 % (38.7-80.0); RED CELL DISTRIBUTION WIDTH 15.2 % (11.7-14.4)
[2025-06-29 06:12] LABS: EST GLOMERULAR FILTRATION RATE 74.0 ML/MIN (>=60); PHOSPHORUS 2.5 MG/DL (2.3-4.7)
[2025-06-29 07:00] LABS: ABG BASE EXCESS -2.0 mmol/L (-2 - 3); ABG HCO3 25 mmol/L (22-26); ABG OXYGEN SATURATION 99.0 % (95-98); ABG PCO2 48 mmHg (35-45); ABG PH 7.32 (7.35-7.45); ABG PO2 167 mmHg (80-105); ABG TCO2 26
[2025-06-29 07:00] LABS: ABG BASE EXCESS -4.0 mmol/L (-2 - 3); ABG HCO3 24 mmol/L (22-26); ABG OXYGEN SATURATION 92.0 % (95-98); ABG PCO2 61 mmHg (35-45); ABG PH 7.20 (7.35-7.45); ABG PO2 79 mmHg (80-105); ABG TCO2 26
[2025-06-29 07:00] LABS: ABG BASE EXCESS -1.0 mmol/L (-2 - 3); ABG HCO3 24 mmol/L (22-26); ABG OXYGEN SATURATION 65.0 % (95-98); ABG PCO2 42 mmHg (35-45); ABG PH 7.37 (7.35-7.45); ABG PO2 35 mmHg (80-105); ABG TCO2 25
[2025-06-29 07:48] LABS: ABG BASE EXCESS 0.0 mmol/L (-2 - 3); ABG HCO3 25 mmol/L (22-26); ABG OXYGEN SATURATION 99.0 % (95-98); ABG PCO2 38 mmHg (35-45); ABG PH 7.42 (7.35-7.45); ABG PO2 150 mmHg (80-105); ABG TCO2 26
[2025-06-29] MEDS: FUROSEMIDE INJ 10 MG/ML 2 ML VIAL IV ONE (10:17)
[2025-06-29] MEDS: INSULIN REGULAR, HUMAN 100 UNIT/1 ML SQ SCH (18:00)
[2025-06-30] VITALS (28 sets, daily range): BP systolic 76–126; BP diastolic 45–105; PULSE 79–112; RESP 10–26; TEMP 98.1–102.8; O2SAT 97–100
[2025-06-30] MEDS: ACETAMINOPHEN 325 MG TAB PO PRN (09:21)
[2025-06-30 09:46] LABS: BASOPHILS % 0.4 % (0.0-1.0); EOSINOPHILS % 0.2 % (0.0-6.0); LYMPHOCYTES % 10.5 % (18.0-39.1); MONOCYTES % 6.5 % (4.4-11.3); NEUTROPHILS % 81.7 % (38.7-80.0); RED CELL DISTRIBUTION WIDTH 15.6 % (11.7-14.4)
[2025-06-30 09:56] LABS: ABG BASE EXCESS -2.0 mmol/L (-2 - 3); ABG HCO3 23 mmol/L (22-26); ABG OXYGEN SATURATION 99.0 % (95-98); ABG PCO2 35 mmHg (35-45); ABG PH 7.42 (7.35-7.45); ABG PO2 130 mmHg (80-105); ABG TCO2 24
[2025-06-30 10:00] LABS: EST GLOMERULAR FILTRATION RATE 91.0 ML/MIN (>=60)
[2025-06-30] MEDS: BISACODYL 5 MG TAB EC PO ONE (11:50)
[2025-07-01] VITALS (58 sets, daily range): BP systolic 69–113; BP diastolic 38–91; PULSE 38–115; RESP 8–33; TEMP 97.2–103.3; O2SAT 97–100
[2025-07-01 07:03] LABS: BASOPHILS % 0.3 % (0.0-1.0); EOSINOPHILS % 0.2 % (0.0-6.0); LYMPHOCYTES % 13.1 % (18.0-39.1); MONOCYTES % 7.5 % (4.4-11.3); NEUTROPHILS % 78.3 % (38.7-80.0); RED CELL DISTRIBUTION WIDTH 15.5 % (11.7-14.4)
[2025-07-01 07:14] LABS: EST GLOMERULAR FILTRATION RATE 90.0 ML/MIN (>=60)
[2025-07-01] MEDS ORDERED: Vancomycin IV 1.25 GM in SODIUM CHLORIDE 0.9% 250ML 250 ML IV ONE (07:45)
[2025-07-01] MEDS: AMIODARONE HCL 200 MG TAB PO SCH (08:15)
[2025-07-01] MEDS: MEROPENEM 1 GM in SODIUM CHLORIDE 0.9% 100 ML IV SCH (08:19)
[2025-07-01] MEDS: ACETAMINOPHEN 325 MG TAB PO ONE (08:41)
[2025-07-01] MEDS ORDERED: INSULIN GLARGINE 100 UNITS/ML VIAL SQ SCH (09:00)
[2025-07-01] MEDS: ALBUMIN 5% 0.05 GM/ML BTL IV ONE (09:44)
[2025-07-01] MEDS: INSULIN GLARGINE 100 UNITS/ML VIAL SQ SCH (09:58)
[2025-07-01] MEDS: VANCOMYCIN 1.25GM/250 ML (PEG) 250 ML IV ONE (09:59)
[2025-07-02] VITALS (89 sets, daily range): BP systolic 64–157; BP diastolic 30–98; PULSE 39–149; RESP 14–30; TEMP 99–102.3; O2SAT 94–100
[2025-07-02 06:35] LABS: BASOPHILS % 0.4 % (0.0-1.0); EOSINOPHILS % 0.4 % (0.0-6.0); LYMPHOCYTES % 15.0 % (18.0-39.1); MONOCYTES % 6.7 % (4.4-11.3); NEUTROPHILS % 76.5 % (38.7-80.0); RED CELL DISTRIBUTION WIDTH 15.5 % (11.7-14.4)
[2025-07-02 06:50] LABS: EST GLOMERULAR FILTRATION RATE 90.0 ML/MIN (>=60)
[2025-07-02] MEDS: INSULIN GLARGINE 100 UNITS/ML VIAL SQ SCH (08:02)
[2025-07-02] MEDS: INSULIN GLARGINE 100 UNITS/ML VIAL SQ ONE (09:04)
[2025-07-02] MEDS: BUMETANIDE 1 MG TAB PO STA (13:37)
[2025-07-02] MEDS: SODIUM BICARBONATE 8.4% VIAL 150 ML in DEXTROSE 5% 1,000 ML IV SCH (14:43)
[2025-07-02] MEDS: CALCIUM GLUC 1 G/50 ML NACL 50 ML IV ONE (15:49)
[2025-07-02] MEDS: ENOXAPARIN SODIUM INJ 100 MG/ML SYR SC SCH (20:21)
[2025-07-03] VITALS (120 sets, daily range): BP systolic 47–145; BP diastolic 25–107; PULSE 27–154; RESP 14–44; TEMP 98.6–102.3; O2SAT 91–100
[2025-07-03 05:21] LABS: BASOPHILS % 0.5 % (0.0-1.0); EOSINOPHILS % 0.4 % (0.0-6.0); LYMPHOCYTES % 15.4 % (18.0-39.1); MONOCYTES % 7.4 % (4.4-11.3); NEUTROPHILS % 75.5 % (38.7-80.0); RED CELL DISTRIBUTION WIDTH 15.5 % (11.7-14.4)
[2025-07-03 05:46] LABS: EST GLOMERULAR FILTRATION RATE 50.0 ML/MIN (>=60)
[2025-07-03 06:19] LABS: ABG BASE EXCESS -5.0 mmol/L (-2 - 3); ABG HCO3 21 mmol/L (22-26); ABG OXYGEN SATURATION 97.0 % (95-98); ABG PCO2 36 mmHg (35-45); ABG PH 7.37 (7.35-7.45); ABG PO2 93 mmHg (80-105); ABG TCO2 22
[2025-07-03] MEDS: BUMETANIDE INJ 0.25MG/ML 4ML VIAL IV ONE (08:25)
[2025-07-03] MEDS: ALBUMIN 25% 12.5GM 0.25 GM/ML BTL IV ONE (08:25)
[2025-07-03] MEDS: INSULIN GLARGINE 100 UNITS/ML VIAL SQ SCH (08:29)
[2025-07-03] MEDS ORDERED: INSULIN GLARGINE 100 UNITS/ML VIAL SQ SCH (09:00)
[2025-07-03] MEDS ORDERED: BUMETANIDE 10 MG in SODIUM CHLORIDE 0.9% 60 ML IV SCH (09:45)
[2025-07-03] MEDS: BUMETANIDE 10 MG in SODIUM CHLORIDE 0.9% 60 ML IV SCH (12:35)
[2025-07-03] MEDS: METOPROLOL TARTRATE INJ 1 MG/ML VIAL IV PRN (18:28)
[2025-07-03] MEDS ORDERED: VASOPRESSIN 60 UNIT in DEXTROSE 5% 50ML 50 ML IV SCH (18:45)
[2025-07-03] MEDS: VASOPRESSIN 60 UNIT in DEXTROSE 5% 50ML 57 ML IV SCH (20:16)
[2025-07-03] MEDS: DIGOXIN INJ 0.25 MG/ML 2 ML AMP IV ONE (23:56)
[2025-07-04] VITALS (83 sets, daily range): BP systolic 78–144; BP diastolic 54–128; PULSE 30–166; RESP 14–44; TEMP 99.1–103.2; O2SAT 96–100
[2025-07-04] MEDS: AMIODARONE 900MG 900 MG in Premix Bag 1 BAG IV ONE ×3 (00:21→17:10)
[2025-07-04] MEDS: AMIODARONE 900MG 500 ML IV ONE (00:34)
[2025-07-04] MEDS ORDERED: DIGOXIN INJ 0.25 MG/ML 2 ML AMP ONE (03:50)
[2025-07-04] MEDS ORDERED: METOPROLOL TARTRATE INJ 1 MG/ML VIAL ONE (03:51)
[2025-07-04 05:12] LABS: BASOPHILS % 0.3 % (0.0-1.0); EOSINOPHILS % 0.1 % (0.0-6.0); LYMPHOCYTES % 9.3 % (18.0-39.1); MONOCYTES % 3.7 % (4.4-11.3); NEUTROPHILS % 85.6 % (38.7-80.0); RED CELL DISTRIBUTION WIDTH 15.9 % (11.7-14.4)
[2025-07-04] MEDS: DIGOXIN INJ 0.25 MG/ML 2 ML AMP IV ONE ×2 (07:12→08:33)
[2025-07-04] MEDS: METOPROLOL TARTRATE INJ 1 MG/ML VIAL IV ONE (07:14)
[2025-07-04 07:30] LABS: EST GLOMERULAR FILTRATION RATE 62.0 ML/MIN (>=60)
[2025-07-04] MEDS ORDERED: LORAZEPAM INJ 2 MG/ML VIAL IV PRN (08:15)
[2025-07-04] MEDS: LORAZEPAM INJ 2 MG/ML VIAL IV ONE (08:25)
[2025-07-04] MEDS: INSULIN GLARGINE 100 UNITS/ML VIAL SQ SCH (08:35)
[2025-07-04] MEDS: FENTANYL 2000MCG/NS 250 250 ML IV PRN (08:37)
[2025-07-04] MEDS: SODIUM CHLORIDE 0.9% IV SCH (11:29)
[2025-07-04] MEDS: NOREPINEPHRINE IV SCH (11:29)
[2025-07-04] MEDS: ZINC SULFATE 220 MG CAP PO SCH (11:46)
[2025-07-04] MEDS: CHOLECALCIFEROL 400 UNIT TAB PO SCH (11:46)
[2025-07-04] MEDS ORDERED: AMIODARONE 900MG 900 MG in Premix Bag 1 BAG IV SCH (17:00)
[2025-07-04] MEDS: BUMETANIDE 10 MG in SODIUM CHLORIDE 0.9% 60 ML IV SCH (21:01)
[2025-07-05] VITALS (80 sets, daily range): BP systolic 72–134; BP diastolic 40–113; PULSE 71–131; RESP 13–39; TEMP 99.3–100.8; O2SAT 96–100
[2025-07-05] MEDS: NOREPINEPHRINE 8 MG/D5W 250 ML 250 ML ONE (02:17)
[2025-07-05] MEDS: SODIUM CHLORIDE 0.9% 250ML 250 ML ONE (02:18)
[2025-07-05 06:32] LABS: BASOPHILS % 0.2 % (0.0-1.0); EOSINOPHILS % 0.1 % (0.0-6.0); LYMPHOCYTES % 15.7 % (18.0-39.1); MONOCYTES % 4.2 % (4.4-11.3); NEUTROPHILS % 78.9 % (38.7-80.0); RED CELL DISTRIBUTION WIDTH 15.0 % (11.7-14.4)
[2025-07-05 06:50] LABS: EST GLOMERULAR FILTRATION RATE 54.0 ML/MIN (>=60)
[2025-07-05] MEDS: AMIODARONE 900MG 500 ML IV SCH (08:59)
[2025-07-05] MEDS: AMIODARONE 900MG 500 ML IV ONE ×2 (09:52→09:58)
[2025-07-05] MEDS: DEXMEDETOMIDINE 400MCG/NS100ML 100 ML IV PRN (11:00)
[2025-07-06] VITALS (60 sets, daily range): BP systolic 59–132; BP diastolic 38–109; PULSE 73–105; RESP 14–47; TEMP 98–101.3; O2SAT 87–100
[2025-07-06 07:10] LABS: BASOPHILS % 0.2 % (0.0-1.0); EOSINOPHILS % 0.7 % (0.0-6.0); LYMPHOCYTES % 15.5 % (18.0-39.1); MONOCYTES % 4.8 % (4.4-11.3); NEUTROPHILS % 78.0 % (38.7-80.0); RED CELL DISTRIBUTION WIDTH 14.9 % (11.7-14.4)
[2025-07-06 07:44] LABS: EST GLOMERULAR FILTRATION RATE 65.0 ML/MIN (>=60)
[2025-07-06 12:27] LABS: INR 0.93
[2025-07-06] MEDS ORDERED: ROCURONIUM BROMIDE 1 ML IV ONE ×2 (13:30→14:41)
[2025-07-06] MEDS ORDERED: FENTANYL CITRATE/PF 100MCG/2 ML INJ ONE (13:30)
[2025-07-06] MEDS ORDERED: MIDAZOLAM HCL 2 MG/2 ML VIAL ONE (13:30)
[2025-07-07] VITALS (88 sets, daily range): BP systolic 72–153; BP diastolic 44–131; PULSE 45–133; RESP 13–41; TEMP 98.6–101.9; O2SAT 92–100
[2025-07-07] MEDS: NOREPINEPHRINE 8 MG/D5W 250 ML 250 ML ONE (07:03)
[2025-07-07 07:33] LABS: BASOPHILS % 0.2 % (0.0-1.0); EOSINOPHILS % 0.1 % (0.0-6.0); LYMPHOCYTES % 9.8 % (18.0-39.1); MONOCYTES % 4.0 % (4.4-11.3); NEUTROPHILS % 84.9 % (38.7-80.0); RED CELL DISTRIBUTION WIDTH 15.0 % (11.7-14.4)
[2025-07-07 07:38] LABS: INR 0.93
[2025-07-07 08:20] LABS: EST GLOMERULAR FILTRATION RATE 49.0 ML/MIN (>=60); PHOSPHORUS 4.4 MG/DL (2.3-4.7)
[2025-07-07] MEDS: ALBUMIN 25% 12.5GM 0.25 GM/ML BTL IV SCH (09:22)
[2025-07-08] VITALS (74 sets, daily range): BP systolic 74–136; BP diastolic 35–92; PULSE 74–130; RESP 11–31; TEMP 100.3–102.3; O2SAT 95–100
[2025-07-08 06:56] LABS: BASOPHILS % 0.3 % (0.0-1.0); EOSINOPHILS % 0.5 % (0.0-6.0); LYMPHOCYTES % 7.2 % (18.0-39.1); MONOCYTES % 4.0 % (4.4-11.3); NEUTROPHILS % 87.1 % (38.7-80.0); RED CELL DISTRIBUTION WIDTH 15.0 % (11.7-14.4)
[2025-07-08 07:11] LABS: EST GLOMERULAR FILTRATION RATE 52.0 ML/MIN (>=60)
[2025-07-08] MEDS: AMIODARONE HCL 200 MG TAB PO SCH (08:30)
[2025-07-08] MEDS ORDERED: POTASSIUM CHLORIDE 20 MEQ TAB CR PO PRN ×2 (10:15)
[2025-07-08 14:28] LABS: BAND NEUTROPHILS % (MANUAL) 1 %; LYMPHOCYTES % (MANUAL) 10 % (19-48); MONOCYTES % (MANUAL) 3 % (3.4-9.0); NEUTROPHILS % (MANUAL) 86 % (40-74); PLATELET ESTIMATE ADEQUATE; PLATELET MORPHOLOGY COMMENT NORMAL
[2025-07-09] VITALS (48 sets, daily range): BP systolic 78–172; BP diastolic 38–149; PULSE 71–99; RESP 14–28; TEMP 98.4–100.8; O2SAT 94–100
[2025-07-09 06:09] LABS: BASOPHILS % 0.3 % (0.0-1.0); EOSINOPHILS % 0.6 % (0.0-6.0); LYMPHOCYTES % 7.6 % (18.0-39.1); MONOCYTES % 4.1 % (4.4-11.3); NEUTROPHILS % 86.8 % (38.7-80.0); RED CELL DISTRIBUTION WIDTH 15.0 % (11.7-14.4)
[2025-07-09 07:08] LABS: EST GLOMERULAR FILTRATION RATE 66.0 ML/MIN (>=60)
[2025-07-09 08:43] LABS: ABG BASE EXCESS 7.0 mmol/L (-2 - 3); ABG HCO3 29 mmol/L (22-26); ABG OXYGEN SATURATION 94.0 % (95-98); ABG PCO2 33 mmHg (35-45); ABG PH 7.55 (7.35-7.45); ABG PO2 60 mmHg (80-105); ABG TCO2 30
[2025-07-09] MEDS: ENOXAPARIN SODIUM INJ 100 MG/ML SYR SC SCH (09:09)
[2025-07-10] VITALS (42 sets, daily range): BP systolic 85–142; BP diastolic 45–97; PULSE 74–108; RESP 14–30; TEMP 98–99.4; O2SAT 99–100
[2025-07-10 06:01] LABS: BASOPHILS % 0.3 % (0.0-1.0); EOSINOPHILS % 0.7 % (0.0-6.0); LYMPHOCYTES % 7.4 % (18.0-39.1); MONOCYTES % 4.3 % (4.4-11.3); NEUTROPHILS % 86.3 % (38.7-80.0); RED CELL DISTRIBUTION WIDTH 15.1 % (11.7-14.4)
[2025-07-10 06:15] LABS: EST GLOMERULAR FILTRATION RATE 90.0 ML/MIN (>=60)
[2025-07-10] MEDS: ALBUMIN 25% 12.5GM 0.25 GM/ML BTL IV SCH (07:38)
[2025-07-10] MEDS: POTASSIUM CHLORIDE 20MEQ/100ML 100 ML IV SCH (08:13)
[2025-07-10] MEDS: LINEZOLID 600 MG TAB PO SCH (16:28)
[2025-07-11] VITALS (52 sets, daily range): BP systolic 86–139; BP diastolic 43–116; PULSE 85–117; RESP 16–32; TEMP 98.8–103.2; O2SAT 98–100
[2025-07-11 06:25] LABS: ABG BASE EXCESS 7.0 mmol/L (-2 - 3); ABG HCO3 29 mmol/L (22-26); ABG OXYGEN SATURATION 94.0 % (95-98); ABG PCO2 33 mmHg (35-45); ABG PH 7.55 (7.35-7.45); ABG PO2 60 mmHg (80-105); ABG TCO2 30
[2025-07-11 06:35] LABS: ABG BASE EXCESS 0.0 mmol/L (-2 - 3); ABG HCO3 25 mmol/L (22-26); ABG OXYGEN SATURATION 99.0 % (95-98); ABG PCO2 38 mmHg (35-45); ABG PH 7.42 (7.35-7.45); ABG PO2 150 mmHg (80-105); ABG TCO2 26
[2025-07-11 06:35] LABS: ABG BASE EXCESS -2.0 mmol/L (-2 - 3); ABG HCO3 23 mmol/L (22-26); ABG OXYGEN SATURATION 99.0 % (95-98); ABG PCO2 35 mmHg (35-45); ABG PH 7.42 (7.35-7.45); ABG PO2 130 mmHg (80-105); ABG TCO2 24
[2025-07-11 06:35] LABS: ABG BASE EXCESS -3.0 mmol/L (-2 - 3); ABG HCO3 22 mmol/L (22-26); ABG OXYGEN SATURATION 68.0 % (95-98); ABG PCO2 33 mmHg (35-45); ABG PH 7.43 (7.35-7.45); ABG PO2 34 mmHg (80-105); ABG TCO2 23
[2025-07-11 06:59] LABS: BASOPHILS % 0.2 % (0.0-1.0); EOSINOPHILS % 0.2 % (0.0-6.0); LYMPHOCYTES % 13.8 % (18.0-39.1); MONOCYTES % 6.2 % (4.4-11.3); NEUTROPHILS % 76.9 % (38.7-80.0); RED CELL DISTRIBUTION WIDTH 15.6 % (11.7-14.4)
[2025-07-11 07:37] LABS: EST GLOMERULAR FILTRATION RATE 89.0 ML/MIN (>=60); PHOSPHORUS 1.8 MG/DL (2.3-4.7)
[2025-07-11] MEDS: POTASSIUM CHLORIDE 20MEQ/100ML 100 ML IV SCH (10:21)
[2025-07-11] MEDS: DEXTROSE 5% 1,000 ML IV ONE (11:24)
[2025-07-11] MEDS: DEXMEDETOMIDINE 400MCG/NS100ML 100 ML IV PRN (12:17)
[2025-07-11] MEDS: POTASSIUM PHOSPHATE 15 MM in DEXTROSE 5% 250ML 250 ML IV ONE (14:31)
[2025-07-11] MEDS: INSULIN GLARGINE 100 UNITS/ML VIAL SQ SCH (20:44)
[2025-07-12] VITALS (87 sets, daily range): BP systolic 69–136; BP diastolic 43–96; PULSE 76–121; RESP 15–34; TEMP 98.3–101.3; O2SAT 99–100
[2025-07-12 06:46] LABS: BASOPHILS % 0.2 % (0.0-1.0); EOSINOPHILS % 0.0 % (0.0-6.0); LYMPHOCYTES % 13.0 % (18.0-39.1); MONOCYTES % 3.8 % (4.4-11.3); NEUTROPHILS % 81.5 % (38.7-80.0); RED CELL DISTRIBUTION WIDTH 15.9 % (11.7-14.4)
[2025-07-12 07:03] LABS: EST GLOMERULAR FILTRATION RATE 73.0 ML/MIN (>=60)
[2025-07-12 08:53] LABS: BAND NEUTROPHILS % (MANUAL) 4 %; LYMPHOCYTES % (MANUAL) 10 % (19-48); MONOCYTES % (MANUAL) 3 % (3.4-9.0); NEUTROPHILS % (MANUAL) 83 % (40-74)
[2025-07-12 08:54] LABS: PLATELET ESTIMATE ADEQUATE; PLATELET MORPHOLOGY COMMENT NORMAL
[2025-07-12] MEDS: MAGNESIUM SULFATE 2GM/50ML 50 ML IV ONE (09:25)
[2025-07-12] MEDS: POTASSIUM CHLORIDE 20MEQ/100ML 100 ML IV SCH (09:44)
[2025-07-12] MEDS: NOREPINEPHRINE 8 MG/D5W 250 ML 250 ML IV SCH (11:30)
[2025-07-12] MEDS: VASOPRESSIN 60 UNIT in DEXTROSE 5% 50ML 57 ML IV SCH (11:30)
[2025-07-12 11:41] LABS: ABG BASE EXCESS 9.0 mmol/L (-2 - 3); ABG HCO3 31 mmol/L (22-26); ABG PCO2 35 mmHg (35-45); ABG PH 7.56 (7.35-7.45); ABG PO2 163 mmHg (80-105); ABG TCO2 32
[2025-07-12 11:42] LABS: ABG OXYGEN SATURATION 100.0 % (95-98)
[2025-07-13] VITALS (95 sets, daily range): BP systolic 78–147; BP diastolic 44–95; PULSE 61–129; RESP 17–33; TEMP 97–100.1; O2SAT 95–100
[2025-07-13 07:01] LABS: BASOPHILS % 0.1 % (0.0-1.0); EOSINOPHILS % 1.9 % (0.0-6.0); LYMPHOCYTES % 14.4 % (18.0-39.1); MONOCYTES % 4.3 % (4.4-11.3); NEUTROPHILS % 78.0 % (38.7-80.0); RED CELL DISTRIBUTION WIDTH 15.6 % (11.7-14.4)
[2025-07-13 07:33] LABS: EST GLOMERULAR FILTRATION RATE 79.0 ML/MIN (>=60)
[2025-07-13] MEDS: FENTANYL 2000MCG/NS 250 250 ML IV PRN (09:07)
[2025-07-14] VITALS (92 sets, daily range): BP systolic 75–151; BP diastolic 29–115; PULSE 36–179; RESP 16–38; TEMP 98–100.6; O2SAT 86–100
[2025-07-14 06:50] LABS: BASOPHILS % 0.2 % (0.0-1.0); EOSINOPHILS % 0.4 % (0.0-6.0); LYMPHOCYTES % 6.7 % (18.0-39.1); MONOCYTES % 4.1 % (4.4-11.3); NEUTROPHILS % 86.8 % (38.7-80.0); RED CELL DISTRIBUTION WIDTH 15.6 % (11.7-14.4)
[2025-07-14 07:11] LABS: EST GLOMERULAR FILTRATION RATE 72.0 ML/MIN (>=60); PHOSPHORUS 3.8 MG/DL (2.3-4.7)
[2025-07-14] MEDS: BUMETANIDE INJ 0.25MG/ML 4ML VIAL IV SCH (14:03)
[2025-07-14 14:32] LABS: EST GLOMERULAR FILTRATION RATE 63.0 ML/MIN (>=60)
[2025-07-14 14:54] LABS: ABG PH 7.48 (7.35-7.45)
[2025-07-14 14:55] LABS: ABG BASE EXCESS 5.0 mmol/L (-2 - 3); ABG HCO3 28 mmol/L (22-26); ABG OXYGEN SATURATION 99.0 % (95-98); ABG PCO2 38 mmHg (35-45); ABG PO2 146 mmHg (80-105); ABG TCO2 29
[2025-07-15] VITALS (58 sets, daily range): BP systolic 75–166; BP diastolic 49–136; PULSE 74–110; RESP 15–34; TEMP 97.9–98.9; O2SAT 98–100
[2025-07-15] MEDS: FENTANYL 2000MCG/NS 250 250 ML IV SCH (03:32)
[2025-07-15 06:24] LABS: BASOPHILS % 0.2 % (0.0-1.0); EOSINOPHILS % 1.2 % (0.0-6.0); LYMPHOCYTES % 12.0 % (18.0-39.1); MONOCYTES % 5.1 % (4.4-11.3); NEUTROPHILS % 79.9 % (38.7-80.0); RED CELL DISTRIBUTION WIDTH 15.8 % (11.7-14.4)
[2025-07-15 06:43] LABS: EST GLOMERULAR FILTRATION RATE 57.0 ML/MIN (>=60)
[2025-07-15] MEDS: TRAMADOL HCL 50 MG TAB PO PRN (19:54)
[2025-07-16] VITALS (88 sets, daily range): BP systolic 68–133; BP diastolic 44–102; PULSE 68–136; RESP 17–31; TEMP 98–98.7; O2SAT 99–100
[2025-07-16 06:47] LABS: BASOPHILS % 0.1 % (0.0-1.0); EOSINOPHILS % 0.0 % (0.0-6.0); LYMPHOCYTES % 3.1 % (18.0-39.1); MONOCYTES % 1.9 % (4.4-11.3); NEUTROPHILS % 93.6 % (38.7-80.0); RED CELL DISTRIBUTION WIDTH 15.9 % (11.7-14.4)
[2025-07-16 07:02] LABS: EST GLOMERULAR FILTRATION RATE 60.0 ML/MIN (>=60)
[2025-07-16 07:49] LABS: BAND NEUTROPHILS % (MANUAL) 6 %; LYMPHOCYTES % (MANUAL) 3 % (19-48); MONOCYTES % (MANUAL) 1 % (3.4-9.0); NEUTROPHILS % (MANUAL) 90 % (40-74); PLATELET ESTIMATE SLIGHTLY INCREASED; PLATELET MORPHOLOGY COMMENT NORMAL
[2025-07-16] MEDS: ENOXAPARIN SODIUM INJ 100 MG/ML SYR SC SCH (08:18)
[2025-07-16] MEDS ORDERED: BUMETANIDE INJ 0.25MG/ML 4ML VIAL IV ONE (10:30)
[2025-07-16] MEDS: BUMETANIDE INJ 0.25MG/ML 4ML VIAL IV ONE (10:53)
[2025-07-16] MEDS: ALBUMIN 5% 0.05 GM/ML BTL IV ONE (10:54)
[2025-07-16] MEDS: DEXMEDETOMIDINE 400MCG/NS100ML 100 ML IV PRN (12:04)
[2025-07-16] MEDS: NOREPINEPHRINE 8 MG/D5W 250 ML 250 ML IV SCH (16:10)
[2025-07-17] VITALS (127 sets, daily range): BP systolic 76–176; BP diastolic 35–158; PULSE 45–147; RESP 15–30; TEMP 98.2–99.2; O2SAT 99–100
[2025-07-17 05:40] LABS: BASOPHILS % 0.1 % (0.0-1.0); EOSINOPHILS % 0.6 % (0.0-6.0); LYMPHOCYTES % 9.3 % (18.0-39.1); MONOCYTES % 2.8 % (4.4-11.3); NEUTROPHILS % 85.3 % (38.7-80.0); RED CELL DISTRIBUTION WIDTH 16.1 % (11.7-14.4)
[2025-07-17 05:58] LABS: EST GLOMERULAR FILTRATION RATE 56.0 ML/MIN (>=60)
[2025-07-17] MEDS: BUMETANIDE INJ 0.25MG/ML 4ML VIAL IV ONE (08:59)
[2025-07-17] MEDS: SODIUM CHLORIDE 0.9% 250ML 250 ML ONE (11:42)
[2025-07-17 15:54] LABS: ABG BASE EXCESS -3.0 mmol/L (-2 - 3); ABG HCO3 23 mmol/L (22-26); ABG OXYGEN SATURATION 100.0 % (95-98); ABG PCO2 41 mmHg (35-45); ABG PH 7.35 (7.35-7.45); ABG PO2 191 mmHg (80-105); ABG TCO2 24
[2025-07-17] MEDS: AMIODARONE 900MG 500 ML IV SCH (15:54)
[2025-07-18] VITALS (82 sets, daily range): BP systolic 77–138; BP diastolic 46–96; PULSE 67–128; RESP 14–33; TEMP 97.8–101.2; O2SAT 96–100
[2025-07-18 05:14] LABS: BASOPHILS % 0.2 % (0.0-1.0); EOSINOPHILS % 0.2 % (0.0-6.0); LYMPHOCYTES % 12.2 % (18.0-39.1); MONOCYTES % 4.1 % (4.4-11.3); NEUTROPHILS % 81.4 % (38.7-80.0); RED CELL DISTRIBUTION WIDTH 17.6 % (11.7-14.4)
[2025-07-18 05:57] LABS: EST GLOMERULAR FILTRATION RATE 42.0 ML/MIN (>=60)
[2025-07-18] MEDS: ACETAMINOPHEN 1000 MG/100 ML IV ONE (08:21)
[2025-07-18] MEDS ORDERED: VASOPRESSIN INJ 20 UNIT/ML VIAL ONE (09:45)
[2025-07-18] MEDS ORDERED: FENTANYL CITRATE/PF 100MCG/2 ML INJ ONE (09:45)
[2025-07-18] MEDS ORDERED: SUGAMMADEX SODIUM 200 MG/2 ML VIAL IV ONE (09:45)
[2025-07-18] MEDS ORDERED: ROCURONIUM BROMIDE 1 ML IV ONE (09:45)
[2025-07-18] MEDS ORDERED: LIDOCAINE HCL 2% LOCAL INJ 5 ML SDV VIAL INJ ONE (09:48)
[2025-07-18] MEDS ORDERED: DEXAMETHASONE SOD PHOS INJ 4 MG/ML SDV ONE (09:48)
[2025-07-18] MEDS: INSULIN REGULAR, HUMAN 100 UNIT/1 ML IV ONE (10:02)
[2025-07-18] MEDS: DEXTROSE 50% SYRINGE 50 ML IV ONE (10:02)
[2025-07-18] MEDS ORDERED: SEVOFLURANE INHAL SOLN 250 ML PEN BTL ONE (11:52)
[2025-07-18 12:14] LABS: BAND NEUTROPHILS % (MANUAL) 1 %; LYMPHOCYTES % (MANUAL) 12 % (19-48); MONOCYTES % (MANUAL) 3 % (3.4-9.0); NEUTROPHILS % (MANUAL) 84 % (40-74); PLATELET ESTIMATE ADEQUATE; PLATELET MORPHOLOGY COMMENT NORMAL
[2025-07-18 12:42] LABS: ABG BASE EXCESS 1.0 mmol/L (-2 - 3); ABG HCO3 25 mmol/L (22-26); ABG OXYGEN SATURATION 97.0 % (95-98); ABG PCO2 39 mmHg (35-45); ABG PH 7.43 (7.35-7.45); ABG PO2 87 mmHg (80-105); ABG TCO2 26
[2025-07-18] MEDS: ALBUMIN 5% 0.05 GM/ML BTL IV ONE ×2 (16:14→16:20)
[2025-07-18] MEDS: AMIODARONE 900MG 500 ML IV SCH (23:08)
[2025-07-19] VITALS (34 sets, daily range): BP systolic 81–136; BP diastolic 51–90; PULSE 58–116; RESP 15–28; TEMP 97.9–99.3; O2SAT 99–100
[2025-07-19] MEDS: MEROPENEM 1 GM in SODIUM CHLORIDE 0.9% 100 ML IV SCH (05:30)
[2025-07-19 06:54] LABS: ABG BASE EXCESS 5.0 mmol/L (-2 - 3); ABG HCO3 28 mmol/L (22-26); ABG OXYGEN SATURATION 99.0 % (95-98); ABG PCO2 38 mmHg (35-45); ABG PH 7.48 (7.35-7.45); ABG PO2 146 mmHg (80-105); ABG TCO2 29
[2025-07-19 06:54] LABS: ABG BASE EXCESS 9.0 mmol/L (-2 - 3); ABG HCO3 31 mmol/L (22-26); ABG OXYGEN SATURATION 100.0 % (95-98); ABG PCO2 35 mmHg (35-45); ABG PH 7.56 (7.35-7.45); ABG PO2 163 mmHg (80-105); ABG TCO2 32
[2025-07-19 06:54] LABS: ABG BASE EXCESS -3.0 mmol/L (-2 - 3); ABG HCO3 23 mmol/L (22-26); ABG OXYGEN SATURATION 100.0 % (95-98); ABG PCO2 41 mmHg (35-45); ABG PH 7.35 (7.35-7.45); ABG PO2 191 mmHg (80-105); ABG TCO2 24
[2025-07-19 07:48] LABS: BASOPHILS % 0.1 % (0.0-1.0); EOSINOPHILS % 0.0 % (0.0-6.0); LYMPHOCYTES % 5.7 % (18.0-39.1); MONOCYTES % 2.5 % (4.4-11.3); NEUTROPHILS % 90.4 % (38.7-80.0); RED CELL DISTRIBUTION WIDTH 17.0 % (11.7-14.4)
[2025-07-19 08:12] LABS: EST GLOMERULAR FILTRATION RATE 62.0 ML/MIN (>=60)
[2025-07-19 12:11] LABS: LYMPHOCYTES % (MANUAL) 4 % (19-48); NEUTROPHILS % (MANUAL) 96 % (40-74); PLATELET ESTIMATE ADEQUATE; PLATELET MORPHOLOGY COMMENT NORMAL; RBC MORPHOLOGY COMMENT NORMAL
[2025-07-20] VITALS (76 sets, daily range): BP systolic 88–152; BP diastolic 48–120; PULSE 60–117; RESP 14–29; TEMP 97.5–98.6; O2SAT 95–100
[2025-07-20 07:17] LABS: BASOPHILS % 0.1 % (0.0-1.0); EOSINOPHILS % 0.1 % (0.0-6.0); LYMPHOCYTES % 7.5 % (18.0-39.1); MONOCYTES % 4.2 % (4.4-11.3); NEUTROPHILS % 86.8 % (38.7-80.0); RED CELL DISTRIBUTION WIDTH 17.2 % (11.7-14.4)
[2025-07-20 07:27] LABS: EST GLOMERULAR FILTRATION RATE 50.0 ML/MIN (>=60)
[2025-07-20 08:45] LABS: ABG PH 7.45 (7.35-7.45)
[2025-07-20 08:46] LABS: ABG BASE EXCESS 1.0 mmol/L (-2 - 3); ABG HCO3 25 mmol/L (22-26); ABG OXYGEN SATURATION 97.0 % (95-98); ABG PCO2 36 mmHg (35-45); ABG PO2 91 mmHg (80-105); ABG TCO2 26
[2025-07-20] MEDS: ALBUMIN 5% 0.05 GM/ML BTL IV ONE (10:58)
[2025-07-20 11:54] LABS: LYMPHOCYTES % (MANUAL) 11 % (19-48); MONOCYTES % (MANUAL) 4 % (3.4-9.0); NEUTROPHILS % (MANUAL) 85 % (40-74); PLATELET ESTIMATE ADEQUATE; PLATELET MORPHOLOGY COMMENT NORMAL
[2025-07-20] MEDS: FENTANYL 2000MCG/NS 250 250 ML IV SCH (18:23)
[2025-07-21] VITALS (67 sets, daily range): BP systolic 86–124; BP diastolic 47–89; PULSE 45–118; RESP 14–26; TEMP 97.5–98.3; O2SAT 95–100
[2025-07-21 06:19] LABS: BASOPHILS % 0.2 % (0.0-1.0); EOSINOPHILS % 0.9 % (0.0-6.0); LYMPHOCYTES % 7.7 % (18.0-39.1); MONOCYTES % 3.0 % (4.4-11.3); NEUTROPHILS % 87.0 % (38.7-80.0); RED CELL DISTRIBUTION WIDTH 17.9 % (11.7-14.4)
[2025-07-21 06:59] LABS: EST GLOMERULAR FILTRATION RATE 56.0 ML/MIN (>=60); PHOSPHORUS 4.7 MG/DL (2.3-4.7)
[2025-07-21 09:47] LABS: ABG HCO3 24 mmol/L (22-26); ABG PCO2 33 mmHg (35-45); ABG PH 7.47 (7.35-7.45); ABG PO2 92 mmHg (80-105); ABG TCO2 25
[2025-07-21 09:48] LABS: ABG BASE EXCESS 1.0 mmol/L (-2 - 3); ABG OXYGEN SATURATION 98.0 % (95-98)
[2025-07-21] MEDS: DEXMEDETOMIDINE 400MCG/NS100ML 100 ML IV PRN (11:15)
[2025-07-22] VITALS (102 sets, daily range): BP systolic 78–151; BP diastolic 43–97; PULSE 61–143; RESP 14–32; TEMP 98.2–100.8; O2SAT 96–100
[2025-07-22 07:01] LABS: BASOPHILS % 0.2 % (0.0-1.0); EOSINOPHILS % 0.6 % (0.0-6.0); LYMPHOCYTES % 5.9 % (18.0-39.1); MONOCYTES % 2.7 % (4.4-11.3); NEUTROPHILS % 89.6 % (38.7-80.0); RED CELL DISTRIBUTION WIDTH 18.1 % (11.7-14.4)
[2025-07-22 07:17] LABS: EST GLOMERULAR FILTRATION RATE 55.0 ML/MIN (>=60)
[2025-07-22] MEDS ORDERED: AMIODARONE 900MG 900 MG in Premix Bag 1 BAG IV ONE (07:45)
[2025-07-22] MEDS: DIGOXIN INJ 0.25 MG/ML 2 ML AMP IV ONE (08:30)
[2025-07-22] MEDS: AMIODARONE 900MG 500 ML IV ONE (09:31)
[2025-07-23] VITALS (56 sets, daily range): BP systolic 95–150; BP diastolic 46–121; PULSE 52–111; RESP 16–25; TEMP 99–101.2; O2SAT 98–100
[2025-07-23 07:06] LABS: BASOPHILS % 0.2 % (0.0-1.0); EOSINOPHILS % 1.1 % (0.0-6.0); LYMPHOCYTES % 7.2 % (18.0-39.1); MONOCYTES % 2.8 % (4.4-11.3); NEUTROPHILS % 87.7 % (38.7-80.0); RED CELL DISTRIBUTION WIDTH 18.9 % (11.7-14.4)
[2025-07-23 07:28] LABS: EST GLOMERULAR FILTRATION RATE 52.0 ML/MIN (>=60)
[2025-07-23] MEDS: AMIODARONE HCL 200 MG TAB PO SCH (10:20)
[2025-07-23 10:59] LABS: LYMPHOCYTES % (MANUAL) 8 % (19-48); MONOCYTES % (MANUAL) 1 % (3.4-9.0); NEUTROPHILS % (MANUAL) 91 % (40-74); PLATELET ESTIMATE ADEQUATE; PLATELET MORPHOLOGY COMMENT FEW LARGE
[2025-07-24] VITALS (91 sets, daily range): BP systolic 76–148; BP diastolic 44–119; PULSE 62–143; RESP 15–33; TEMP 97.4–100.1; O2SAT 95–100
[2025-07-24] MEDS: LEVOTHYROXINE SODIUM 100 MCG TAB PO SCH (05:01)
[2025-07-24 05:38] LABS: BASOPHILS % 0.2 % (0.0-1.0); EOSINOPHILS % 1.7 % (0.0-6.0); LYMPHOCYTES % 6.5 % (18.0-39.1); MONOCYTES % 2.7 % (4.4-11.3); NEUTROPHILS % 87.7 % (38.7-80.0); RED CELL DISTRIBUTION WIDTH 18.7 % (11.7-14.4)
[2025-07-24 06:02] LABS: ABG BASE EXCESS 1.0 mmol/L (-2 - 3); ABG HCO3 24 mmol/L (22-26); ABG OXYGEN SATURATION 98.0 % (95-98); ABG PCO2 33 mmHg (35-45); ABG PH 7.47 (7.35-7.45); ABG PO2 92 mmHg (80-105); ABG TCO2 25
[2025-07-24 06:02] LABS: ABG BASE EXCESS 1.0 mmol/L (-2 - 3); ABG HCO3 25 mmol/L (22-26); ABG OXYGEN SATURATION 97.0 % (95-98); ABG PCO2 36 mmHg (35-45); ABG PH 7.45 (7.35-7.45); ABG PO2 91 mmHg (80-105); ABG TCO2 26
[2025-07-24 06:02] LABS: ABG BASE EXCESS 1.0 mmol/L (-2 - 3); ABG HCO3 25 mmol/L (22-26); ABG OXYGEN SATURATION 97.0 % (95-98); ABG PCO2 39 mmHg (35-45); ABG PH 7.43 (7.35-7.45); ABG PO2 87 mmHg (80-105); ABG TCO2 26
[2025-07-24 06:10] LABS: EST GLOMERULAR FILTRATION RATE 57.0 ML/MIN (>=60)
[2025-07-24 06:29] LABS: PHOSPHORUS 4.0 MG/DL (2.3-4.7)
[2025-07-24] MEDS: FUROSEMIDE INJ 10 MG/ML 4 ML VIAL IV ONE (08:16)
[2025-07-24] MEDS: INSULIN GLARGINE 100 UNITS/ML VIAL SQ SCH (08:19)
[2025-07-24 09:14] LABS: ABG PH 7.44 (7.35-7.45)
[2025-07-24 09:15] LABS: ABG BASE EXCESS -1.0 mmol/L (-2 - 3); ABG HCO3 23 mmol/L (22-26); ABG OXYGEN SATURATION 98.0 % (95-98); ABG PCO2 34 mmHg (35-45); ABG PO2 102 mmHg (80-105); ABG TCO2 24
[2025-07-24 10:58] LABS: LYMPHOCYTES % (MANUAL) 11 % (19-48); MONOCYTES % (MANUAL) 2 % (3.4-9.0); NEUTROPHILS % (MANUAL) 87 % (40-74); PLATELET ESTIMATE ADEQUATE; PLATELET MORPHOLOGY COMMENT FEW LARGE
[2025-07-24] MEDS: INSULIN REGULAR, HUMAN 100 UNIT/1 ML SQ SCH (11:29)
[2025-07-24] MEDS: METRONIDAZOLE 500MG/NS 100ML 100 ML IV SCH (22:15)
[2025-07-25] VITALS (91 sets, daily range): BP systolic 76–139; BP diastolic 16–88; PULSE 63–118; RESP 15–31; TEMP 97.2–99.2; O2SAT 98–100
[2025-07-25 06:23] LABS: BASOPHILS % 0.3 % (0.0-1.0); EOSINOPHILS % 1.6 % (0.0-6.0); LYMPHOCYTES % 6.0 % (18.0-39.1); MONOCYTES % 3.0 % (4.4-11.3); NEUTROPHILS % 88.4 % (38.7-80.0); RED CELL DISTRIBUTION WIDTH 18.7 % (11.7-14.4)
[2025-07-25 06:56] LABS: EST GLOMERULAR FILTRATION RATE 57.0 ML/MIN (>=60)
[2025-07-25 07:13] LABS: PHOSPHORUS 3.5 MG/DL (2.3-4.7)
[2025-07-25] MEDS: ENOXAPARIN SODIUM INJ 100 MG/ML SYR SC SCH (09:04)
[2025-07-25 09:24] LABS: LYMPHOCYTES % (MANUAL) 8 % (19-48); NEUTROPHILS % (MANUAL) 92 % (40-74); PLATELET ESTIMATE ADEQUATE; PLATELET MORPHOLOGY COMMENT NORMAL; RBC MORPHOLOGY COMMENT NORMAL
[2025-07-25] MEDS: FENTANYL 2000MCG/NS 250 250 ML IV SCH (17:33)
[2025-07-26] VITALS (84 sets, daily range): BP systolic 76–135; BP diastolic 33–87; PULSE 40–122; RESP 15–30; TEMP 99.2–100; O2SAT 80–100
[2025-07-26 06:47] LABS: BASOPHILS % 0.3 % (0.0-1.0); EOSINOPHILS % 1.4 % (0.0-6.0); LYMPHOCYTES % 6.8 % (18.0-39.1); MONOCYTES % 3.1 % (4.4-11.3); NEUTROPHILS % 87.6 % (38.7-80.0); RED CELL DISTRIBUTION WIDTH 19.1 % (11.7-14.4)
[2025-07-26 07:17] LABS: EST GLOMERULAR FILTRATION RATE 50.0 ML/MIN (>=60)
[2025-07-26] MEDS: FUROSEMIDE INJ 10 MG/ML 4 ML VIAL IV ONE (08:55)
[2025-07-26] MEDS: ALBUMIN 25% 12.5GM 0.25 GM/ML BTL IV SCH (08:55)
[2025-07-26] MEDS: MIDODRINE HCL 5 MG TABLET PO SCH (12:09)
[2025-07-26 12:39] LABS: EOSINOPHILS % (MANUAL) 1 % (0-7); LYMPHOCYTES % (MANUAL) 6 % (19-48); MONOCYTES % (MANUAL) 3 % (3.4-9.0); NEUTROPHILS % (MANUAL) 90 % (40-74); PLATELET ESTIMATE ADEQUATE; PLATELET MORPHOLOGY COMMENT NORMAL; RBC MORPHOLOGY COMMENT NORMAL
[2025-07-26] MEDS: MEROPENEM 1 GM in SODIUM CHLORIDE 0.9% 100 ML IV SCH (18:35)
[2025-07-27] VITALS (61 sets, daily range): BP systolic 90–132; BP diastolic 45–95; PULSE 57–110; RESP 16–33; TEMP 97.7–99.2; O2SAT 97–100
[2025-07-27 06:59] LABS: BASOPHILS % 0.2 % (0.0-1.0); EOSINOPHILS % 2.5 % (0.0-6.0); LYMPHOCYTES % 6.5 % (18.0-39.1); MONOCYTES % 3.3 % (4.4-11.3); NEUTROPHILS % 86.9 % (38.7-80.0); RED CELL DISTRIBUTION WIDTH 19.2 % (11.7-14.4)
[2025-07-27 07:52] LABS: EST GLOMERULAR FILTRATION RATE 37.0 ML/MIN (>=60); PHOSPHORUS 3.4 MG/DL (2.3-4.7)
[2025-07-27 09:05] LABS: EOSINOPHILS % (MANUAL) 4 % (0-7); LYMPHOCYTES % (MANUAL) 3 % (19-48); NEUTROPHILS % (MANUAL) 93 % (40-74); PLATELET ESTIMATE ADEQUATE; PLATELET MORPHOLOGY COMMENT NORMAL; RBC MORPHOLOGY COMMENT NORMAL
[2025-07-27] MEDS: SODIUM CHLORIDE 0.9% 250ML 250 ML IV ONE (12:01)
[2025-07-27] MEDS: FUROSEMIDE INJ 10 MG/ML 2 ML VIAL IV PRN (15:37)
[2025-07-27] MEDS: FUROSEMIDE INJ 10 MG/ML 2 ML VIAL IV ONE (15:37)
[2025-07-27] MEDS: SODIUM CHLORIDE 0.9% 250ML 250 ML ONE (19:38)
[2025-07-28] VITALS (78 sets, daily range): BP systolic 89–123; BP diastolic 40–88; PULSE 71–129; RESP 5–31; TEMP 97.8–101; O2SAT 94–100
[2025-07-28 07:17] LABS: BASOPHILS % 0.5 % (0.0-1.0); EOSINOPHILS % 3.1 % (0.0-6.0); LYMPHOCYTES % 6.8 % (18.0-39.1); MONOCYTES % 3.4 % (4.4-11.3); NEUTROPHILS % 85.5 % (38.7-80.0); RED CELL DISTRIBUTION WIDTH 18.6 % (11.7-14.4)
[2025-07-28 07:40] LABS: EST GLOMERULAR FILTRATION RATE 44.0 ML/MIN (>=60)
[2025-07-28] MEDS: ALBUMIN 25% 12.5GM 0.25 GM/ML BTL IV SCH (10:28)
[2025-07-28] MEDS: FUROSEMIDE INJ 10 MG/ML 2 ML VIAL IV ONE (10:28)
[2025-07-28 13:26] LABS: DURATION, URINE COLLECTION 24.0 hrs
[2025-07-28 14:00] LABS: CREATININE CLEARANCE,URINE 13.0 ml/min (88-128); CREATININE,URINE RANDOM 33.19 mg/dL (47-110)
[2025-07-28] MEDS: DEXMEDETOMIDINE 400MCG/NS100ML 100 ML IV ONE ×2 (15:46→15:47)
[2025-07-28] MEDS: DEXMEDETOMIDINE 400MCG/NS100ML 100 ML IV PRN (16:54)
[2025-07-29] VITALS (89 sets, daily range): BP systolic 71–131; BP diastolic 43–84; PULSE 57–122; RESP 13–34; TEMP 98.1–99.7; O2SAT 95–100
[2025-07-29 05:58] LABS: BASOPHILS % 0.2 % (0.0-1.0); EOSINOPHILS % 2.0 % (0.0-6.0); LYMPHOCYTES % 7.7 % (18.0-39.1); MONOCYTES % 3.4 % (4.4-11.3); NEUTROPHILS % 85.9 % (38.7-80.0); RED CELL DISTRIBUTION WIDTH 19.2 % (11.7-14.4)
[2025-07-29 06:27] LABS: EST GLOMERULAR FILTRATION RATE 43.0 ML/MIN (>=60)
[2025-07-29] MEDS: DEXTROSE 50% SYRINGE 50 ML IV PRN (06:56)
[2025-07-29] MEDS: DEXTROSE 50% SYRINGE 50 ML IV ONE (06:56)
[2025-07-29 08:28] LABS: ABG BASE EXCESS -7.0 mmol/L (-2 - 3); ABG HCO3 18 mmol/L (22-26); ABG OXYGEN SATURATION 98.0 % (95-98); ABG PCO2 32 mmHg (35-45); ABG PH 7.37 (7.35-7.45); ABG PO2 115 mmHg (80-105); ABG TCO2 19
[2025-07-29 11:51] LABS: BAND NEUTROPHILS % (MANUAL) 38 %; EOSINOPHILS % (MANUAL) 1 % (0-7); LYMPHOCYTES % (MANUAL) 8 % (19-48); MONOCYTES % (MANUAL) 1 % (3.4-9.0); NEUTROPHILS % (MANUAL) 52 % (40-74); PLATELET ESTIMATE ADEQUATE; PLATELET MORPHOLOGY COMMENT NORMAL; RBC MORPHOLOGY COMMENT NORMAL
[2025-07-30] VITALS (101 sets, daily range): BP systolic 44–113; BP diastolic 15–83; PULSE 74–128; RESP 17–34; TEMP 98.3–98.9; O2SAT 99–100
[2025-07-30 06:46] LABS: BASOPHILS % 0.1 % (0.0-1.0); EOSINOPHILS % 1.3 % (0.0-6.0); LYMPHOCYTES % 7.0 % (18.0-39.1); MONOCYTES % 3.0 % (4.4-11.3); NEUTROPHILS % 88.0 % (38.7-80.0); RED CELL DISTRIBUTION WIDTH 19.7 % (11.7-14.4)
[2025-07-30 07:24] LABS: EST GLOMERULAR FILTRATION RATE 38 ML/MIN (>=60)
[2025-07-30 08:49] LABS: EST GLOMERULAR FILTRATION RATE 36 ML/MIN (>=60)
[2025-07-30 10:18] LABS: LYMPHOCYTES % (MANUAL) 9 % (19-48); MONOCYTES % (MANUAL) 1 % (3.4-9.0); NEUTROPHILS % (MANUAL) 90 % (40-74); PLATELET ESTIMATE ADEQUATE; PLATELET MORPHOLOGY COMMENT NORMAL
[2025-07-30] MEDS: SODIUM BICARBONATE 8.4% VIAL 50 ML in SODIUM CHLORIDE 0.45% 1,000 ML IV ONE (10:55)
[2025-07-30] MEDS: ALBUMIN 5% 0.05 GM/ML BTL IV ONE (13:21)
[2025-07-30] MEDS: VASOPRESSIN 60 UNIT in DEXTROSE 5% 50ML 57 ML IV SCH (14:52)
[2025-07-30] MEDS: ACETAMINOPHEN 1000 MG/100 ML IV PRN (18:07)
[2025-07-31] VITALS (77 sets, daily range): BP systolic 49–124; BP diastolic 19–85; PULSE 79–142; RESP 18–35; TEMP 98.2–99.2; O2SAT 95–100
[2025-07-31 05:01] LABS: EST GLOMERULAR FILTRATION RATE 30.0 ML/MIN (>=60)
[2025-07-31 06:06] LABS: BASOPHILS % 0.1 % (0.0-1.0); EOSINOPHILS % 0.6 % (0.0-6.0); LYMPHOCYTES % 6.4 % (18.0-39.1); MONOCYTES % 2.5 % (4.4-11.3); NEUTROPHILS % 89.2 % (38.7-80.0); RED CELL DISTRIBUTION WIDTH 19.8 % (11.7-14.4)
[2025-07-31 11:26] LABS: EOSINOPHILS % (MANUAL) 1 % (0-7); LYMPHOCYTES % (MANUAL) 4 % (19-48); MONOCYTES % (MANUAL) 1 % (3.4-9.0); NEUTROPHILS % (MANUAL) 94 % (40-74); PLATELET ESTIMATE ADEQUATE; PLATELET MORPHOLOGY COMMENT NORMAL; RBC MORPHOLOGY COMMENT NORMAL
[2025-07-31] MEDS: SODIUM CHLORIDE 0.9% 500ML 500 ML IV ONE (13:31)
[2025-07-31] MEDS: SODIUM BICARBONATE 8.4% INJ 50 ML SYR IV STA ×2 (13:31→21:22)
[2025-07-31] MEDS: PHENYLEPHRINE 10MG/ML VIAL 40 MG in DEXTROSE 5% 250ML 246 ML IV SCH (18:30)
[2025-07-31] MEDS ORDERED: EPINEPHRINE HCL 1:1000 1ML 4 MG in DEXTROSE 5% 250ML 250 ML IV PRN (21:15)
[2025-07-31] MEDS: SODIUM BICARBONATE 8.4% SYRING 50 ML ONE (21:32)
[2025-07-31] MEDS: SODIUM BICARBONATE 8.4% SYRING 150 ML in DEXTROSE 5% 1,000 ML IV SCH (22:02)
[2025-08-01] VITALS (95 sets, daily range): BP systolic 80–143; BP diastolic 35–93; PULSE 38–122; RESP 15–27; TEMP 97.6–98.5; O2SAT 98–100
[2025-08-01 06:08] LABS: BASOPHILS % 0.2 % (0.0-1.0); EOSINOPHILS % 0.4 % (0.0-6.0); LYMPHOCYTES % 4.5 % (18.0-39.1); MONOCYTES % 2.1 % (4.4-11.3); NEUTROPHILS % 90.8 % (38.7-80.0); RED CELL DISTRIBUTION WIDTH 19.7 % (11.7-14.4)
[2025-08-01 06:41] LABS: EST GLOMERULAR FILTRATION RATE 28.0 ML/MIN (>=60)
[2025-08-01 07:29] LABS: EOSINOPHILS % (MANUAL) 1 % (0-7); LYMPHOCYTES % (MANUAL) 4 % (19-48); MONOCYTES % (MANUAL) 2 % (3.4-9.0); NEUTROPHILS % (MANUAL) 93 % (40-74)
[2025-08-01 07:30] LABS: PLATELET ESTIMATE ADEQUATE; PLATELET MORPHOLOGY COMMENT NORMAL
[2025-08-01] MEDS: FENTANYL CITRATE/PF 100MCG/2 ML INJ IV PRN (11:40)
[2025-08-02] VITALS (68 sets, daily range): BP systolic 79–134; BP diastolic 49–95; PULSE 71–111; RESP 12–22; TEMP 97.8–98.9; O2SAT 97–100
[2025-08-02 05:40] LABS: BASOPHILS % 0.1 % (0.0-1.0); EOSINOPHILS % 1.6 % (0.0-6.0); LYMPHOCYTES % 5.8 % (18.0-39.1); MONOCYTES % 1.8 % (4.4-11.3); NEUTROPHILS % 88.9 % (38.7-80.0); RED CELL DISTRIBUTION WIDTH 19.8 % (11.7-14.4)
[2025-08-02 06:22] LABS: EST GLOMERULAR FILTRATION RATE 28.0 ML/MIN (>=60)
[2025-08-02 09:10] LABS: EOSINOPHILS % (MANUAL) 1 % (0-7); LYMPHOCYTES % (MANUAL) 3 % (19-48); NEUTROPHILS % (MANUAL) 96 % (40-74); PLATELET ESTIMATE ADEQUATE; PLATELET MORPHOLOGY COMMENT NORMAL; RBC MORPHOLOGY COMMENT NORMAL
[2025-08-02] MEDS: BUMETANIDE INJ 0.25MG/ML 4ML VIAL IV ONE (09:11)
[2025-08-02] MEDS: DEXMEDETOMIDINE 400MCG/NS100ML 100 ML IV PRN (11:22)
[2025-08-02] MEDS: FENTANYL 2000MCG/NS 250 250 ML IV SCH (17:10)
== END 2025-08-02 19:58 | disposition hospice, inpatient (51) | DRG 4 ==
LOC: ER 20:55 → ERHOLD 21:42 → MED/SURG3 23:29 → ICU 06-24 10:34
PROVIDERS: ADMIT Internal Medicine; ATTEND Internal Medicine
PROC: 3E0333Z Introduction of Anti-inflammatory into Peripheral Vein, Percutaneous Approach (ICD-10-PCS; 2025-06-23)
PROC: 02HV33Z Insertion of Infusion Device into Superior Vena Cava, Percutaneous Approach (ICD-10-PCS; 2025-06-24)
PROC: 0T9B70Z Drainage of Bladder with Drainage Device, Via Natural or Artificial Opening (ICD-10-PCS; 2025-06-24)
PROC: 4A133R1 Monitoring of Arterial Saturation, Peripheral, Percutaneous Approach (ICD-10-PCS; 2025-06-25)
PROC: 0W9B3ZZ Drainage of Left Pleural Cavity, Percutaneous Approach (ICD-10-PCS; 2025-06-25)
PROC: XW033E5 Introduction of Remdesivir Anti-infective into Peripheral Vein, Percutaneous Approach, New Technology Group 5 (ICD-10-PCS; 2025-06-25)
PROC: 5A09357 Assistance with Respiratory Ventilation, Less than 24 Consecutive Hours, Continuous Positive Airway Pressure (ICD-10-PCS; 2025-06-25)
PROC: 5A1955Z Respiratory Ventilation, Greater than 96 Consecutive Hours (ICD-10-PCS; 2025-06-27)
PROC: 0B978ZZ Drainage of Left Main Bronchus, Via Natural or Artificial Opening Endoscopic (ICD-10-PCS; 2025-06-27)
PROC: 0B9G8ZZ Drainage of Left Upper Lung Lobe, Via Natural or Artificial Opening Endoscopic (ICD-10-PCS; 2025-06-27)
PROC: 0BH17EZ Insertion of Endotracheal Airway into Trachea, Via Natural or Artificial Opening (ICD-10-PCS; 2025-06-27)
PROC: 5A0935A Assistance with Respiratory Ventilation, Less than 24 Consecutive Hours, High Flow/Velocity Cannula (ICD-10-PCS; 2025-06-27)
PROC: 3E043XZ Introduction of Vasopressor into Central Vein, Percutaneous Approach (ICD-10-PCS; 2025-06-27)
PROC: 0D9630Z Drainage of Stomach with Drainage Device, Percutaneous Approach (ICD-10-PCS; 2025-07-06)
PROC: 0B9M8ZZ Drainage of Bilateral Lungs, Via Natural or Artificial Opening Endoscopic (ICD-10-PCS; 2025-07-06)
PROC: 0B110F4 Bypass Trachea to Cutaneous with Tracheostomy Device, Open Approach (ICD-10-PCS; principal; 2025-07-06 13:56)
PROC: 30233N1 Transfusion of Nonautologous Red Blood Cells into Peripheral Vein, Percutaneous Approach (ICD-10-PCS; 2025-07-17)
DX: U07.1 COVID-19 (principal); R65.21 Severe sepsis with septic shock; B37.7 Candidal sepsis; J15.1 Pneumonia due to Pseudomonas; N17.0 Acute kidney failure with tubular necrosis; J12.82 Pneumonia due to coronavirus disease 2019; J69.0 Pneumonitis due to inhalation of food and vomit; J96.22 Acute and chronic respiratory failure with hypercapnia; J96.21 Acute and chronic respiratory failure with hypoxia; E43 Unspecified severe protein-calorie malnutrition; I70.263 Atherosclerosis of native arteries of extremities with gangrene, bilateral legs; E87.4 Mixed disorder of acid-base balance; D68.9 Coagulation defect, unspecified; J90 Pleural effusion, not elsewhere classified; T79.7XXA Traumatic subcutaneous emphysema, initial encounter; E87.1 Hypo-osmolality and hyponatremia; N13.6 Pyonephrosis; I13.0 Hypertensive heart and chronic kidney disease with heart failure and stage 1 through stage 4 chronic kidney disease, or unspecified chronic kidney disease; J98.11 Atelectasis; I48.19 Other persistent atrial fibrillation; J95.09 Other tracheostomy complication; E88.09 Other disorders of plasma-protein metabolism, not elsewhere classified; Z51.5 Encounter for palliative care; Z66 Do not resuscitate; G14 Postpolio syndrome; I50.9 Heart failure, unspecified; E11.22 Type 2 diabetes mellitus with diabetic chronic kidney disease; N18.32 Chronic kidney disease, stage 3b; Y95 Nosocomial condition; E87.5 Hyperkalemia; R31.0 Gross hematuria; E66.01 Morbid (severe) obesity due to excess calories; Z68.39 Body mass index [BMI] 39.0-39.9, adult; D64.9 Anemia, unspecified; E03.9 Hypothyroidism, unspecified; F41.9 Anxiety disorder, unspecified; F32.A Depression, unspecified; K21.9 Gastro-esophageal reflux disease without esophagitis; M54.50 Low back pain, unspecified; E87.70 Fluid overload, unspecified; R79.89 Other specified abnormal findings of blood chemistry; R53.81 Other malaise; M19.90 Unspecified osteoarthritis, unspecified site; Z79.890 Hormone replacement therapy; Z79.84 Long term (current) use of oral hypoglycemic drugs; Z90.49 Acquired absence of other specified parts of digestive tract; Z90.710 Acquired absence of both cervix and uterus; Z85.42 Personal history of malignant neoplasm of other parts of uterus; Z86.12 Personal history of poliomyelitis; Z91.041 Radiographic dye allergy status; Z88.1 Allergy status to other antibiotic agents; Z88.0 Allergy status to penicillin; Z88.2 Allergy status to sulfonamides; Z88.8 Allergy status to other drugs, medicaments and biological substances; Z91.018 Allergy to other foods; Z91.010 Allergy to peanuts; Z91.013 Allergy to seafood; Z87.891 Personal history of nicotine dependence
CPT/HCPCS: 31500; 32555; 36415; 36569; 36600; 43246; 71045; 71250; 74018; 74176; 74470; 76604; 76770; 78708; 80048; 80053; 80202; 81001; 82575; 82805; 82948; 83036; 83605; 83615; 83735; 83880; 83970; 84100; 84157; 84436; 84443; 84478; 84479; 84484; 84550; 85014; 85018; 85025; 85610; 85730; 86850; 86900; 86920; 87040; 87070; 87086; 87186; 87205; 89051; 93005; 93306; 93925; 93970; 94002; 94003; 94660; 94667; 94668; 94669; 94799; 96372; 99252; 99284; A9562; C1729; J0169; J0248; J0330; J0612; J0692; J1100; J1160; J1650; J1815; J1885; J1938; J2003; J2060; J2185; J2250; J2371; J2470; J3373; J3475; J3480; J7030; J7040; J7050; J7070; J7799; P9016; U0002